=== PATIENT | female | born 1935 | race Caucasian/White ===

== ENCOUNTER 2017-05-06 12:40 | Inpatient (IN) | payer MEDICARE ==
[~2017-05-06] VITALS: Ht 154.9 cm; Wt 88.9 kg
[2017-05-06] VITALS (13 sets, daily range): BP systolic 90–161; BP diastolic 36–71
--- NOTE | ~2017-05-06 | CON ---
[place], [place] REPORT OF CONSULTATION NAME: JOSETTE RYDER UNIT #: [id number] ROOM: [place] [address] DOCTOR: GAURANG MEEK MD BIRTHDATE: [birth year] DOS: 05/07/2017 HISTORY OF PRESENT ILLNESS: An 81-year-old patient who has presented with chief complaint of shivering, rigor and not feeling well. She comes to the Emergency Room. Urine culture one of the studies done, cultures were negative. Urinalysis was benign. Lactic acid 2.7. Comprehensive metabolic panel, creatinine 1.0. Electrolytes balance, liver function tests normal. Lactic acid was reassessed, which is 1.5. CBC differential, H and H 10 and 32, platelets 187. Urine culture unremarkable. PAST MEDICAL HISTORY: Status post known history of diabetes mellitus, periodic electrolyte imbalance, periodic rectal bleed, history of asthma. PAST SURGICAL HISTORY: Cholecystectomy, colostomy, hysterectomy, lithotripsy. SOCIAL HISTORY: Nonsmoker, nonalcohol consumer. FAMILY HISTORY: Noncontributory. ALLERGIES: COLCHICINE. MEDICATIONS: List has been reviewed. REVIEW OF SYSTEMS: HEENT: Denies double vision, blurred vision. RESPIRATORY: Denies shortness of breath. CARDIOVASCULAR: Denies chest pain. DIGESTIVE SYSTEM: Rectal bleed periodically and colostomy. Patient has been on aspirin and clopidogrel. History of DVT, PE, inferior vena cava filter. PHYSICAL EXAMINATION: GENERAL: Stable, nondistressed. HEENT: Head normocephalic, nontraumatic. Mouth and buccal mucosa benign. NECK: Supple, no thyromegaly. CHEST: Symmetric anatomy, equal expansion. HEART: Normal sinus rhythm, no gallop, no murmur. LUNGS: Vesicular no wheeze, no rhonchi. ABDOMEN: Soft. No hepato-organomegaly, colostomy functional. There is no blood in colostomy. PELVIC: Rectum, does not appear to be blood tinged; at the present time, she tells me once in a while, she has blood per rectum. NEUROLOGIC: Alert, oriented to time, place and person. EXTREMITIES: No cyanosis. No pedal edema. IMPRESSION: Periodic rectal bleed with presence of diverting colostomy. Patient on aspirin and clopidogrel, possibility of mucosal irritation; therefore, we are going to Anucort-HC suppositories at bedtime to remedy the superficial problem on hand. OTHER ADJUNCTIVE DIAGNOSES: As outlined in the paragraph of past medical and [place], [place] REPORT OF CONSULTATION NAME: JOSETTE RYDER UNIT #: [id number] ROOM: [place] [address] DOCTOR: GAVIOTA HARRELL,GAURANG BIRTHDATE: [birth year] surgical history as reviewed, records reviewed, data reviewed. GAURANG MEEK MD CM:CONSTR:REPORT OF CONSULTATION 36 05/07/172110 interface
--- NOTE | ~2017-05-06 | PR ---
[place], [place] PROGRESS NOTE NAME: JOSETTE RYDER UNIT #: [id number] ROOM: 427 DOCTOR: CECILIA REID MD BIRTHDATE: [birth year] DOS: SUBJECTIVE: The patient is feeling good, but at times seems forgetful. OBJECTIVE: VITAL SIGNS: Blood pressure is 106/65, pulse of 85, respirations 22, temperature 98.3. LUNGS: Diminished breath sounds, clear. HEART: Regular. ABDOMEN: Obese with colostomy bag present. EXTREMITIES: Without any edema. ASSESSMENT AND PLAN: 1. The patient admitted with sepsis, most likely from underlying UTI. She was hypotensive, tachycardic with elevated lactic acid. She is definitely improved on ceftriaxone. Urine cultures and blood cultures are pending, no results available. 2. Adult failure to thrive. The patient would benefit from short-term placement to rehab center. Social service consult has been obtained. PT has already been seeing her. CECILIA REID MD CM:PNTRANS [id number] CECILIA REID MD 05/07/17 9865 interface
--- NOTE | ~2017-05-06 | WRIGHTHP ---
[place], [place] PATIENT HISTORY AND PHYSICAL EXAM NAME: JOSETTE RYDER [facility] #: [id number] UNIT #: [id number] ROOM: [place] [address] DOCTOR: DIEGO LEGER MD BIRTHDATE: [birth year] DOS: 05/06/2017 HISTORY OF PRESENT ILLNESS: An 81-year-old female presented to the Emergency Department at [facility] with complaints of shaking chills. The patient was found to be tachycardic with a heart rate of 126 beats per minute and fever of 104.2 degrees Fahrenheit, breathing 34 times per minute and elevated lactic acid levels. The patient was diagnosed as having sepsis related to urinary infection and recommended for admission and further management. The patient's chest x-ray showed no infiltrates. The patient is awake, alert and is starting to feel better with initial treatment. During the process of treatment in the Emergency Department and transfer to the floor for admission, the patient's blood pressure did drop and she became hypotensive with a systolic blood pressure of 90 and diastolic blood pressure of 36. No dizziness or fainting episode. No other GI or urinary symptoms. REVIEW OF SYSTEMS: LUNGS: No increasing shortness of breath. GASTROINTESTINAL: No nausea, vomiting, diarrhea, constipation. CARDIOVASCULAR: No chest pains or palpitations. FAMILY HISTORY: Noncontributory. SOCIAL HISTORY: Denies smoking cigarettes, alcohol and drug abuse. MEDICATIONS: The patient takes vitamin D, Plavix, glipizide, hydrochlorothiazide, losartan, metoprolol, omeprazole, ropinirole and simvastatin at home. ALLERGIES: Known allergies to COLCHICINE. FAMILY HISTORY: Noncontributory. PHYSICAL EXAMINATION: GENERAL: Awake, alert, oriented, weak, obese, in no visible distress. Generalized weakness. HEENT AND NECK: Extraocular movements are intact. Sclerae are anicteric. Oral mucosa is moist and clean. No obvious facial weakness. Neck is supple without any lymphadenopathy. No thyromegaly. No JVD. No carotid arterial bruits. LUNGS: Clear to auscultation. No wheezing. No rhonchi. CARDIOVASCULAR SYSTEM: Heart rate is regular in rate and rhythm. S1 and S2 normally audible. No significant murmur or any other abnormal cardiac sounds. ABDOMEN: Soft, nontender. No obvious organomegaly. Bowel sounds are present. No obvious herniation. The patient has colostomy with a colostomy bag. EXTREMITIES: Without significant cyanosis or edema. Warm to touch. CENTRAL NERVOUS SYSTEM: Alert and oriented x 3. Cranial nerves II-XII are intact. Speech is normal. The patient is able to move all extremities. Normal muscle strength. Deep tendon reflexes are equal on both sides. Plantars were downgoing. LABORATORY DATA: Chest x-ray without acute abnormality. Lactic acid level was [place], [place] PATIENT HISTORY AND PHYSICAL EXAM NAME: JOSETTE RYDER UNIT #: [id number] ROOM: [place] [address] DOCTOR: DIEGO LEGER MD BIRTHDATE: [birth year] 2.7, improved to 1.5. BUN and creatinine, serum electrolytes, bilirubin, liver enzymes normal. CBC is normal. IMPRESSION: 1. The patient presenting with sepsis, tachycardia of 130 beats per minute, fever of more than 104 degrees Fahrenheit, lactic acid level of 2.7 and respiratory rate of more than 30, has been admitted to the ICU and being treated for sepsis and suspected urinary infection. I will keep her on Rocephin and follow her closely. The patient was having shaking chills and blood cultures were sent. 2. Type 2 diabetes mellitus. Monitor blood sugars and treat accordingly. 3. Adult failure to thrive. The patient worked with physical therapy. 4. Benign essential hypertension. Monitor blood pressures and treat accordingly. 5. History of deep vein thrombosis, pulmonary embolism, IVC filter placement. 6. History of diverticulitis, colonic stricture with colectomy and colostomy. 7. Moderate obesity. The patient to work dietary. DIEGO LEGER MD CM:HISPHYS:PATIENT HISTORY AND PHYSICAL EXAMINATION 40 58 DIEGO LEGER MD 05/06/172057 interface
--- NOTE | ~2017-05-06 | WRIGHTHP ---
[place], [place] PATIENT HISTORY AND PHYSICAL EXAM NAME: JOSETTE RYDER [facility] #: [id number] UNIT #: [id number] ROOM: 427 DOCTOR: DIEGO LEGER MD BIRTHDATE: [birth year] DOS: 05/10/2017 DIAGNOSES: 1. The patient noticed blood per rectum, apparently related to hemorrhoids. Dr. Arellano performed endoscopy and evaluated the patient. 2. The patient had sepsis, fever, tachycardia apparently from urinary infection with E. coli, urinary tract infection and cystitis, treated with IV antibiotics. 3. Adult failure to thrive and generalized weakness. 4. Moderate obesity. 5. Benign essential hypertension. 6. Type 2 diabetes mellitus. Blood sugars are reasonably controlled. The patient presented to the Emergency Department at [facility] with shaking chills, tachycardia, heart rate of 226 beats per minute with sinus tachycardia, breathing 34 times per minute and fever of 104.2. The patient also had elevated lactic acid level and she was diagnosed as having sepsis. The patient grew Enterococcus faecalis from her urine and she was treated with antibiotics appropriately and is being discharged to home on Augmentin. The patient is symptomatic, now afebrile, no tachycardia and asymptomatic, no fever. The patient is to follow up with her PCP, Dr. Contreras, on Sunday next week. Generalized weakness and dural failure to thrive. The patient worked with physical therapy and she refused senior living placement for rehabilitation. Blood per rectum, it was thought to be secondary to hemorrhoids. Dr. Arellano performed endoscopy. Moderate obesity. The patient worked with dietary. Type 2 diabetes mellitus. Blood sugars have been reasonably controlled. Benign essential hypertension with controlled blood pressures with treatment. LABORATORY DATA: Endoscopy results as mentioned above. Urine cultures grew Enterococcus faecalis sensitive to penicillin, hemoglobin of 10.5, no leukocytosis. DISCHARGE MANAGEMENT: Gabapentin 100 mg in the morning and 200 mg at bedtime, losartan 50 mg daily, hydrochlorothiazide 12.5 mg daily, Plavix 75 mg a day, glipizide 5 mg b.i.d., omeprazole 20 mg daily, simvastatin 20 mg at bedtime, Tylenol p.r.n., ropinirole 4 mg at bedtime, metoprolol 50 mg b.i.d., Nystatin 5 mL swish and swallow b.i.d. for 10 days, Augmentin 875 mg twice a day for a week. Follow up with Dr. Contreras, PCP, next week on Sunday, that is in 5 days. [place], [place] PATIENT HISTORY AND PHYSICAL EXAM NAME: JOSETTE RYDER UNIT #: [id number] ROOM: [facility] DOCTOR: DIEGO LEGER MD BIRTHDATE: [birth year] DIEGO LEGER MD CM:HISPHYS:PATIENT HISTORY AND PHYSICAL EXAMINATION [phone] DIEGO LEGER MD 05/10/17 2253 interface
--- NOTE | ~2017-05-06 | PR ---
[place], [place] PROGRESS NOTE NAME: JOSETTE RYDER [facility] #: [id number] UNIT #: [id number] ROOM: 427 DOCTOR: DIEGO LEGER MD BIRTHDATE: [birth year] DOS: 05/09/2017 SUBJECTIVE: The patient continues to feel better. She is going for an endoscopy to be performed through her colostomy for blood that was seen in her colostomy bag today. OBJECTIVE: GENERAL APPEARANCE: The patient is alert and oriented x 3, in no visible distress, generalized weakness. VITAL SIGNS: Blood pressure ____, heart rate ____ beats per minute, breathing 18 times per minute, temperature 98 degrees Fahrenheit. HEENT AND NECK: Exam within normal limits. CARDIOVASCULAR SYSTEM: Heart rate is regular in rate and rhythm. S1 and S2 normally audible. LUNGS: Clear to auscultation. ABDOMEN: Soft, nontender. No obvious organomegaly. Bowel sounds are present. EXTREMITIES: Without significant cyanosis or edema. IMPRESSION: 1. The patient with sepsis, fever, tachycardia, urine infection with Escherichia coli and hypotension along with lactic acidosis has all resolved with treatment with ceftriaxone. The patient continues to improve. Her Patel catheter needs to be removed. 2. Adult failure to thrive with generalized weakness and recurrent falls. The patient working with Physical Therapy. 3. Blood found in colostomy bag with acute lower gastrointestinal bleed. The patient undergoing endoscopy to be performed through her colostomy site by Dr. Arellano today for further evaluation. 4. Moderate obesity. The patient working with her Dietary. 5. Benign essential hypertension with controlled blood pressures. 6. Type 2 diabetes mellitus with reasonably controlled blood sugars. DIEGO LEGER MD CM:PNTRANS [id number] DIEGO LEGER MD 05/09/17 1348 interface
--- NOTE | ~2017-05-06 | PR ---
[place], [place] PROGRESS NOTE NAME: [id number] UNIT #: [id number] ROOM: 427 DOCTOR: ARSEN HARRELL,DIEGO Gutierrez BIRTHDATE: [birth year] DOS: 05/08/2017 ADDENDUM IMPRESSION: 1. The patient with sepsis, suspected urinary infection and hypotension, tachycardia, elevated lactic acid levels, being treated with ceftriaxone. 2. Adult failure to thrive, generalized weakness and recurrent falls, but the patient does not want to go to half-way facility or rehab. The patient says she wants to be discharged to home from the hospital and she is alert and oriented and capable of making decisions at this time. 3. Fever of 104 degrees Fahrenheit, resolved, apparently from urinary infection. 4. Benign essential hypertension with blood pressure being monitored and controlled. 5. Sinus tachycardia, the heart rate of 130 beats per minute, resolved with treatment, apparently related to fever. 6. Moderate obesity. The patient is working with dietary. 7. History of deep venous thrombosis, pulmonary embolism and inferior vena cava filter placement. 8. Benign essential hypertension. Blood pressure is being monitored and treated. 9. Type 2 diabetes mellitus with reasonably controlled blood sugars. 10. Adult failure to thrive. The patient is working with physical therapy and she does not want to go to half-way for rehabilitation. DIEGO LEGER MD CM:PNTRANS [id number] DIEGO LEGER MD 05/09/17 0809 interface
--- NOTE | ~2017-05-06 | O ---
[place], [place] OPERATIVE NOTE NAME: JOSETTE RYDER UNIT #: [id number] ROOM: 427 DOCTOR: GAVIOTA HARRELL,GAURANG BIRTHDATE: [birth year] DOS: GASTRO-ENDOSCOPIC REPORT INDICATIONS: The patient has presented with persistent lower rectal bleed. The patient with diverticulectomy in place and concern about recurrent rectal bleed and recurrent admission about above. PROCEDURE: Today's procedure part of investigation is flexible sigmoidoscopy. PREMEDICATION: Versed. SCOPE: Olympus forward-viewing colonoscope 10L video. REPORT: After putting the patient in the left lateral position and after application of lubricant to rectal pouch and digital examination, scope was introduced. Thereafter, under direct visualization, I advanced left of the rectosigmoid colon without difficulty. Scope was negotiated to anastomotic site. Diverticulosis noticed. A small hemorrhoid was appreciated. No active bleeding source was identified. The patient extubated, tolerated procedure well. IMPRESSION: Diverticulosis, benign anastomotic site, hemorrhoid. PLAN AND DISCUSSION: Hemorrhoids ____ patient would suffice management. She is advised not to be concerned about the superficial bleeds and we are going to start her on regular diet. GAURANG MEEK MD CM:OPRECORD:OPERATIVE NOTE [phone] GAURANG MEEK MD 05/09/17 1712 interface
[~2017-05-06 12:40] MED LIST: ALPRAZOLAM0.5 M3 PO; AMARYL2 MG PO; ASPI-COR81 M1 PO; ASPIR LOW81 MG PO; ATOXIMETIN-B1 CAP PO; AUGMENTIN 875-875 MG PO; BACTRIM DS 8001 TA1 PO; CEFTIN250 MG PO; COZAAR50 MG PO; DELTASONE5 MG PO; DUONEB 3 MG/3 ML3 M1 NEB; GLIPIZIDE5 MG PO; GLUCTESTSTRIP; HYDR12.5C PO; INDOMETHACIN50 MG PO; LEXAPRO10 MG PO; LOPRESSOR50 M1 PO; LOPRESSOR50 MG PO; MOTRIN400 MG PO; MULTI-DAY1 TAB PO; NEBULIZER; NEURONTIN100 MG PO; NILSTAT,MY500000 UN/ PO; PERCOCET 325 MG1 TA7 PO; PLAVIX75 MG PO; PRILOSEC20 MG PO; PRINIVIL20 MG PO; PROTONIX20 MG PO; PULMICORT RESP0.5 MG INH; QUINAPRIL10 MG PO; ROPINIROLE HYDRO2 M1 PO; VITAMIN C500 MG PO; VITAMIN D32000 I1 PO; ZOCOR20 MG PO; [UNRECOGNIZED DRUG - OTHER] PO
[2017-05-06 13:41] LABS: HEMATOCRIT 37.5 % (37.0-47.0); HEMOGLOBIN 12.1 g/dl (12.0-16.0); MEAN CELL VOLUME 86.4 fl (81.0-99.0); MEAN CORPUSCULAR HGB 27.9 pg (27.0-31.0); MEAN CORPUSCULAR HGB CONC 32.3 g/dl (33.0-37.0); MEAN PLATELET VOLUME 10.8 fl (9.6-12.3); PLATELET COUNT AUTOMATED 195 10*3/uL (130-400); RED BLOOD COUNT 4.34 10*6/uL (4.10-5.10); RED CELL DISTRI WIDTH 13.6 % (0-14.5); WHITE BLOOD COUNT 8.2 10*3/uL (4.8-10.8)
[2017-05-06 13:48] LABS: BILIRUBIN NEGATIVE (NEGATIVE); BLOOD TRACE-LYSED (NEGATIVE); CLARITY CLEAR (CLEAR); COLOR STRAW (YELLOW); GLUCOSE NEGATIVE (NEGATIVE); KETONE NEGATIVE (NEGATIVE); LEUKO ESTERASE TRACE (NEGATIVE); NITRITE NEGATIVE (NEGATIVE); PH 5.5 (5.0-9.0); SPECIFIC GRAVITY 1.015 (1.005-1.030); UROBILINOGEN 0.2 E.U./dl (0.2-1.0)
--- NOTE | 2017-05-06 13:53 | NUR ---
LAB CALLED CRITICAL LACTIC ACID OF 2.[address] COATES AWARE
[2017-05-06 13:56] LABS: ALBUMIN 3.2 gm/dl (3.1-4.5); ALKALINE PHOSPHATASE 107 U/L (45-117); BUN 19 mg/dl (7-24); CHLORIDE 100 mmol/L (98-107); CREATININE 1.03 mg/dL (0.55-1.02); POTASSIUM 4.2 mmol/L (3.5-5.1); SGOT/AST 14 IU/L (3-35); SGPT/ALT 15 U/L (12-78); SODIUM 136 mmol/L (136-145); TOTAL PROTEIN 7.7 gm/dL (6.4-8.2)
[2017-05-06 14:01] LABS: BACTERIA 1+
[2017-05-06 14:03] LABS: BASOPHILS 1 % (0-1); TOTAL CELLS COUNTED 100 #CELLS
[2017-05-06 14:04] LABS: PLATELET SUFFICIENCY NORMAL (NORMAL); POLYCHROMASIA SLIGHT; TOXIC GRANULATION SLIGHT
--- NOTE | 2017-05-06 15:40 | NUR ---
ATTEMPTED TO CALL REPORT. THEY ARE UNABLE TO TAKE AT THIS TIME. THEY WILL CALL BACK. MARCO ANTONIO RODRIGUEZ RN
--- NOTE | 2017-05-06 15:53 | NUR ---
PLACED ON 2L NC. SATS 89-90% ON ROOM AIR WHILE SLEEPING. MARCO ANTONIO RODRIGUEZ RN
--- NOTE | 2017-05-06 16:45 | NUR ---
A 81, admitted to ICCU, under the services of Dr. ARSEN HARRELL,DIEGO Gutierrez with a diagnosis of UTI/SEPSIS. Chief complaint is rectal bleeding/nausea Patient arrived via stretcher from ER. Monitor applied. Initial assessment completed. Vital signs taken and recorded. DR. ARSEN HARRELL,DIEGO Gutierrez notified of admission to the unit. Orders received. See assessment for past medical history, medications and allergies. Patient and/or family oriented to unit. [facility] ICCU visitation policy reviewed. Clothing/patient valuable form completed. NOHELIA CARDOZO
--- NOTE | 2017-05-06 18:57 | NUR ---
DR. MEEK NOTIFIED OF CONSULT.
--- NOTE | 2017-05-06 19:14 | NUR ---
Shift chart check completed.24 HR chart check completed.
--- NOTE | 2017-05-06 20:18 | NUR ---
ON ASSESSMENT PATIENT IS SHIVERING. TEMP 98.6 AT PRESENT. WARM BLANKET APPLIED. NO VOICED COMPLAINTS OF PAIN.SHE'S ALERT AND ORIENTED AT PRESENT. SEE ALL APPROPRIATE INTERVENTIONS.
[2017-05-07] VITALS: BP 120/64
--- NOTE | 2017-05-07 00:44 | NUR ---
TYLENOL BY MOUTH FOR TEMP ELEVATION.
--- NOTE | 2017-05-07 02:32 | NUR ---
DAMION HOSE REMOVED AT PT REQUEST. NO DYSRHYTHMIAS OR RESPIRATORY DISTRESS.
[2017-05-07 04:00] VITALS: BP 101/50
[2017-05-07 05:07] LABS: HEMATOCRIT 32.7 % (37.0-47.0); HEMOGLOBIN 10.5 g/dl (12.0-16.0); MEAN CELL VOLUME 87.4 fl (81.0-99.0); MEAN CORPUSCULAR HGB 28.1 pg (27.0-31.0); MEAN CORPUSCULAR HGB CONC 32.1 g/dl (33.0-37.0); MEAN PLATELET VOLUME 10.3 fl (9.6-12.3); PLATELET COUNT AUTOMATED 184 10*3/uL (130-400); RED BLOOD COUNT 3.74 10*6/uL (4.10-5.10); RED CELL DISTRI WIDTH 14.1 % (0-14.5); WHITE BLOOD COUNT 10.1 10*3/uL (4.8-10.8)
[2017-05-07 05:34] LABS: BUN 18 mg/dl (7-24); CHLORIDE 104 mmol/L (98-107); CREATININE 0.93 mg/dL (0.55-1.02); POTASSIUM 3.9 mmol/L (3.5-5.1); SODIUM 138 mmol/L (136-145)
[2017-05-07 05:36] LABS: PLATELET SUFFICIENCY NORMAL (NORMAL); TOTAL CELLS COUNTED 100 #CELLS
--- NOTE | 2017-05-07 07:00 | NUR ---
24 HR chart check completed.
[2017-05-07 08:00] VITALS: BP 106/55
--- NOTE | 2017-05-07 08:15 | NUR ---
DR REID INTO ASSESS PT. MADE IMC. ORDERS RECIEVED AND CARRIED OUT.
[2017-05-07 12:00] VITALS: BP 98/56
--- NOTE | 2017-05-07 12:23 | NUR ---
Received order for skilled rehab snf stay. In to talk with patient, sister at her bedside. Explained to patient, order was put in for skilled, she stated she doesn't want that, she is not home bound, she still gets around fine at home, lives with her sister. Refusing snf at this time.
[2017-05-07 16:18] VITALS: BP 109/54
[2017-05-07 20:00] VITALS: BP 138/67
--- NOTE | 2017-05-07 20:00 | NUR ---
Patient resting quietly with no c/o discomfort. Respirations easy and regular. Vital signs stable. No overt distress. GIVEN PHONE TO CALL FRIENDS/FAMILY. ALFRED MANZO
[2017-05-07] MEDS ORDERED: NEURONTIN100 MG PO ×2 (21:43)
--- NOTE | 2017-05-07 23:00 | NUR ---
OSTOMY WAFER/BAG REPLACED.
--- NOTE | 2017-05-07 23:54 | NUR ---
PATIENT MEDICATED WITH PRN TYLENOL FOR HEADACHE RATED 5/10 ON A 0/10 PAIN SCALE
[2017-05-08] VITALS: BP 130/60
--- NOTE | 2017-05-08 01:20 | NUR ---
24 HR chart check completed.
--- NOTE | 2017-05-08 03:27 | NUR ---
PATIENT RESTING WITH EYES CLOSED. RESPS EASY AND REGULAR. BED IN LOWEST POSITION, CALL LIGHT IN REACH
--- NOTE | 2017-05-08 06:09 | NUR ---
PATIENT WANTS GLUCATROL AT 9AM INSTEAD OF NOW
[2017-05-08 08:00] VITALS: BP 126/70
--- NOTE | 2017-05-08 10:14 | NUR ---
PHYSICAL THERAPY Patient bathing at this time. Thank you for this referral. Jessica Bell,PT
--- NOTE | 2017-05-08 11:31 | NUR ---
PHYSICAL THERAPY PAtient evaluated on 4, full evaluation to follow. Continue with PT as per plan of care with fall precautions. Home with family assist and home health complete services. PAtient is low complexity via chart review, tests anf evaluation:[id number]. Thank you for this referral. Jessica Bell, PT
[2017-05-08 12:00] VITALS: BP 125/62
--- NOTE | 2017-05-08 12:41 | NUR ---
PHYSICAL THERAPY Anne-Marie was seen this PM 1:1 for her therapy and did very well, Pt with fall precautions. Transfer sit/stand and standing balance MIN A X 1. Start gait without wheeled walker, Anne-Marie wanted to try that first. Gait with MIN LOSS PREVENTION MANAGER X 1, 30' x 1, and just not safe at this time without a walker having LOB. Followed by gait with wheeled walker total 165' X 1, CG X 1, no LOB and cueing just to slow down for gait safety. Pt back up in her bedside chair followed by act Ex to bilateral LE of marching, LAQ's, and ankle pumps X 20 reps each with cueing for each Ex. Pt with call light and sister present, treatment time 25 min. REBEKA ROBLES FAN BLADE TRUER.
[2017-05-08 16:00] VITALS: BP 115/51
[2017-05-08 20:00] VITALS: BP 158/70
[2017-05-09] VITALS (9 sets, daily range): BP systolic 92–150; BP diastolic 41–74
--- NOTE | 2017-05-09 | NUR ---
Patient resting quietly with no c/o discomfort. Respirations easy and regular. Vital signs stable. No overt distress. ALFRED MANZO
--- NOTE | 2017-05-09 04:00 | NUR ---
Patient resting quietly with no c/o discomfort. Respirations easy and regular. Vital signs stable. No overt distress. ALFRED MANZO
--- NOTE | 2017-05-09 11:52 | NUR ---
PHYSICAL THERAPY Anne-Marie seen this AM 1:1 for her therapy session. Said not now that she was going down for test this morning. Stopped back and Pt getting her bath. REBEKA ROBLSE CATALYST SUPERVISOR.
--- NOTE | 2017-05-09 12:56 | NUR ---
PHYSICAL THERAPY Anne-Marie seen this PM and talked into her therapy session before her colonoscopy. Transfer supine/sit CG X 1, sitting balance supervision x 1. Sit/stand and standing balance with wheeled walker MIN A X 1. Gait total 125' X 1, W/W and CGA X 1, no LOB and back supine in bed to rest before her test, treatment time 15 min. REBEKA ROBLES CALL CENTER AGENT.
--- NOTE | 2017-05-09 15:08 | NUR ---
Pt was taken off floor to OR.
[2017-05-10] VITALS: BP 128/59
--- NOTE | 2017-05-10 03:16 | NUR ---
PATIENT SLEEPING AT THIS TIME. NO DISTRESS NOTED, NO CONCERNS AT THIS TIME.
[2017-05-10 08:00] VITALS: BP 131/62
[2017-05-10 12:00] VITALS: BP 122/56
--- NOTE | 2017-05-10 13:53 | NUR ---
PHYSICAL THERAPY Patient presented to therapy with report of feeling much better today. Patient performed sit to stand transfer with SBA. Patient ambulated 220' x 1 with W/W and Supervision. Patient was 1:1 with this TECHNOLOGY PROJECT MANAGER for 12 minutes of gait and 15 minutes of familia. LE ther ex. Jay Alvarado TECHNOLOGY PROJECT MANAGER
[2017-05-10 16:00] VITALS: BP 125/61
[2017-05-10] MEDS ORDERED: Nystatin 100,000 UNI PO (16:19)
--- NOTE | 2017-05-10 17:21 | NUR ---
Discharge instructions reviewed with patient/family. Patient receptive and verbalizes understanding. Follow-up care arranged. Written instructions given to patient/family. BERONICA PORTER
--- NOTE | 2017-05-11 08:01 | NUR ---
PHYSICAL THERAPY CO-SIGN I approve of the Phyical Therapy notes written above. VINICIO CHAPA PT
== END 2017-05-10 17:21 | disposition home or self-care (01) | DRG 872 ==
LOC: ED 12:40 → EDHOLD 15:01 → ICCU 15:01 → 4E 15:01 → ICCU 15:05 → 4E 05-07 22:57
PROVIDERS: Emergency Medicine; ADMIT Internal Medicine
PROC: 0DJD8ZZ Inspection of Lower Intestinal Tract, Via Natural or Artificial Opening Endoscopic (ICD-10-PCS; principal; 2017-05-09)
DX: A41.9 Sepsis, unspecified organism (principal); E87.2 Acidosis; K92.2 Gastrointestinal hemorrhage, unspecified; E11.65 Type 2 diabetes mellitus with hyperglycemia; N39.0 Urinary tract infection, site not specified; R65.20 Severe sepsis without septic shock; Z93.3 Colostomy status; R62.7 Adult failure to thrive; I10 Essential (primary) hypertension; E66.09 Other obesity due to excess calories; K64.9 Unspecified hemorrhoids; J45.909 Unspecified asthma, uncomplicated; D64.9 Anemia, unspecified; B96.20 Unspecified Escherichia coli [E. coli] as the cause of diseases classified elsewhere; Z79.899 Other long term (current) drug therapy; Z88.8 Allergy status to other drugs, medicaments and biological substances; Z90.710 Acquired absence of both cervix and uterus; Z90.49 Acquired absence of other specified parts of digestive tract; Z86.718 Personal history of other venous thrombosis and embolism; Z86.711 Personal history of pulmonary embolism; Z87.19 Personal history of other diseases of the digestive system; Z68.35 Body mass index [BMI] 35.0-35.9, adult

== ENCOUNTER → 2018-01-10 | Outpatient (CLI) | payer MEDICARE ==
[~2018-01-10] MED LIST changes: +Nystatin 100,000 UNI PO
== END | disposition home or self-care (01) ==
LOC: RAD 14:07
DX: M19.032 Primary osteoarthritis, left wrist (principal); Z91.81 History of falling

== ENCOUNTER → 2018-01-24 | Outpatient (CLI) | payer MEDICARE | END | disposition home or self-care (01) | LOC: MAMMO 13:27 | DX: Z12.31 Encounter for screening mammogram for malignant neoplasm of breast (principal) ==

== ENCOUNTER 2018-05-04 12:51 | Emergency (ER) | payer MEDICARE ==
[~2018-05-04] VITALS: Ht 157.4 cm; Wt 89.8 kg
[2018-05-04 12:51] VITALS: BP 161/75
[~2018-05-04 12:51] MED LIST changes: +GABAPENTIN400 MG PO; +XARE15TA PO
== END 2018-05-04 15:40 | disposition home or self-care (01) ==
LOC: ED 12:51
DX: S60.221A Contusion of right hand, initial encounter (principal); S09.90XA Unspecified injury of head, initial encounter; Z86.718 Personal history of other venous thrombosis and embolism; Z79.899 Other long term (current) drug therapy; Z88.8 Allergy status to other drugs, medicaments and biological substances; W10.9XXA Fall (on) (from) unspecified stairs and steps, initial encounter; Y93.89 Activity, other specified; Y92.89 Other specified places as the place of occurrence of the external cause; Y99.8 Other external cause status

== ENCOUNTER → 2018-06-22 | Outpatient (CLI) | payer MEDICARE ==
[~2018-06-22] MED LIST changes: +AUGMENTIN 875875 MG PO; +CYCLOBENZAPRINE5 M3 PO; +DICLOFENAC SOD100 G1 T; +Ipratropium Brom3 ML NEB; +PREDNISONE5 MG PO; +TRAMADOL HCL50 MG PO; +VITAMIN D50000 UNIT PO; +XARE20MG PO; +ZANAFLEX2 M1 PO
== END | disposition home or self-care (01) ==
LOC: US 10:54
DX: I82.492 Acute embolism and thrombosis of other specified deep vein of left lower extremity (principal)

== ENCOUNTER 2018-07-06 14:24 | Emergency (ER) | payer MEDICARE ==
[~2018-07-06] VITALS: Ht 157.4 cm; Wt 89.4 kg
[~2018-07-06 14:24] MED LIST changes: -AUGMENTIN 875875 MG PO; -CYCLOBENZAPRINE5 M3 PO; -DICLOFENAC SOD100 G1 T; -Ipratropium Brom3 ML NEB; -PREDNISONE5 MG PO; -TRAMADOL HCL50 MG PO; -VITAMIN D50000 UNIT PO; -XARE20MG PO; -ZANAFLEX2 M1 PO
[2018-07-06 14:25] VITALS: BP 163/91
[2018-07-06 14:43] LABS: BASO % 0.5 % (0.0-1.0); EOS # 0.3 10*3/uL (0.0-0.4); EOS % 4.4 % (1.0-4.0); HEMATOCRIT 34.7 % (37.0-47.0); HEMOGLOBIN 10.8 g/dl (12.0-16.0); LYMPH # 2.1 10*3/uL (1.3-4.4); LYMPH % 26.3 % (27.0-41.0); MEAN CORPUSCULAR HGB 26.2 pg (27.0-31.0); MEAN CORPUSCULAR HGB CONC 31.1 g/dl (33.0-37.0); MEAN PLATELET VOLUME 10.2 fl (9.6-12.3); MONO # 0.5 10*3/uL (0.1-1.0); MONO % 6.3 % (3.0-9.0); NEUT # 4.8 10*3/uL (2.3-7.9); NEUT % 62.1 % (47.0-73.0); PLATELET COUNT AUTOMATED 264 10*3/uL (130-400); RED BLOOD COUNT 4.13 10*6/uL (4.10-5.10); RED CELL DISTRI WIDTH 14.1 % (0-14.5); WHITE BLOOD COUNT 7.8 10*3/uL (4.8-10.8)
[2018-07-06 15:00] LABS: ALBUMIN 3.4 gm/dl (3.1-4.5); ALKALINE PHOSPHATASE 71 U/L (45-117); BUN 15 mg/dl (7-24); CHLORIDE 104 mmol/L (98-107); CREATININE 0.88 mg/dL (0.55-1.02); LIPASE 149 U/L (73-393); POTASSIUM 4.6 mmol/L (3.5-5.1); SGOT/AST 16 IU/L (3-35); SGPT/ALT 16 U/L (12-78); SODIUM 137 mmol/L (136-145); TOTAL PROTEIN 7.6 gm/dL (6.4-8.2); TROPONIN I < 0.015 ng/ml (<0.045)
[2018-07-06 15:15] LABS: BILIRUBIN NEGATIVE (NEGATIVE); BLOOD NEGATIVE (NEGATIVE); CLARITY SL CLOUDY (CLEAR); COLOR YELLOW (YELLOW); GLUCOSE NEGATIVE (NEGATIVE); KETONE NEGATIVE (NEGATIVE); LEUKO ESTERASE 1+ (NEGATIVE); NITRITE NEGATIVE (NEGATIVE); PH 5.5 (5.0-9.0); SPECIFIC GRAVITY 1.025 (1.005-1.030); UROBILINOGEN 0.2 E.U./dl (0.2-1.0)
[2018-07-06 15:25] LABS: WBC TNTC wbc/hpf (0-5)
[2018-07-06] MEDS ORDERED: CYCLOBENZAPRINE5 M3 PO (16:33)
[2018-07-06] MEDS ORDERED: TRAMADOL HCL50 MG PO (16:34)
== END 2018-07-06 16:36 | disposition home or self-care (01) ==
LOC: ED 14:24
PROVIDERS: Nurse Practitioner Family
DX: M54.5 Low back pain (principal); M62.830 Muscle spasm of back; E11.9 Type 2 diabetes mellitus without complications; K21.9 Gastro-esophageal reflux disease without esophagitis; Z93.3 Colostomy status; Z79.899 Other long term (current) drug therapy; Z86.73 Personal history of transient ischemic attack (TIA), and cerebral infarction without residual deficits; Z90.710 Acquired absence of both cervix and uterus; Z90.49 Acquired absence of other specified parts of digestive tract

== ENCOUNTER 2018-07-11 02:48 | Inpatient (IN) | payer MEDICARE ==
[2018-07-11] VITALS (8 sets, daily range): BP systolic 126–147; BP diastolic 59–77
[~2018-07-11] VITALS: Ht 157.4 cm; Wt 88.1 kg
--- NOTE | ~2018-07-11 | CON ---
[place], [place] REPORT OF CONSULTATION NAME: [facility]TE [facility]YDER [facility]: [id number] UNIT #: [id number] ROOM: 412 DOCTOR: KAMILAH HICKEY MD BIRTHDATE: [birth year] DOS: 07/15/2018 CARDIOLOGY CONSULTATION REASON FOR CONSULTATION: Hypotension. HISTORY OF PRESENT ILLNESS: The patient is an 83-year-old woman who has no documented heart disease. She was evaluated at the [facility] in [place] about 5 years ago per her report. I do not have those records, but she states that she did undergo catheterization. After the catheterization, she suffered a right hemispheric stroke, had an episode of gout and then developed multisystem failure. She was transferred to the [facility] where she was hospitalized for a week and then improved. She states that her heart catheterization showed no significant coronary artery disease. She has never had a heart attack and denies any chest pain. She came into the hospital on this occasion after falling at home. Pain started about 4 days prior to admission and was found to be due to a compression fracture of L2. This was treated by invasive radiologist, Dr. Etienne with vertebroplasty on 07/12/2018. Her symptoms improved and she was being scheduled for transfer to the [facility] for rehabilitation. Last evening, her blood pressure dropped substantially from 134/72-88/44. She was given a total of 1000 mL of saline solution intravenously and her blood pressure this morning is normal. Current blood pressure is 116/52. She denied any chest pain, lightheadedness, syncope or dyspnea. Her EKG showed no acute changes, serial troponins were normal. Her hemoglobin had dropped from 10.0 to 9.0, but at this morning, it is stable at 9.2. She did recently have an echocardiogram on 03/15/2018, which showed a mildly dilated left ventricle with normal segmental wall motion, mild concentric left ventricular hypertrophy and an ejection fraction of 65% with grade 1 abnormal relaxation pattern present. There was aortic sclerosis, but no stenosis. There was no significant abnormality of mitral valve function. PAST MEDICAL HISTORY: Includes: 1. Essential hypertension. 2. Type 2 diabetes mellitus. 3. Deep venous thrombosis treated with Xarelto. 4. Restless leg syndrome. 5. History of colectomy and colostomy in the past. 6. History of diverticulosis. 7. History of gout. CURRENT MEDICATIONS: Include Dilaudid 0.25 mg q. 8 hours IV, gabapentin 300 mg q. 8 hours, Augmentin 875 mg q. 12 hours p.o., acetaminophen p.r.n., rivaroxaban 20 mg daily, metoprolol 50 mg b.i.d., Lidoderm patch p.r.n., Lexapro 10 mg daily, albuterol by nebulizer q. 6 hours, omeprazole 20 mg daily and glipizide 10 mg daily. She was also on hydrochlorothiazide and losartan, but these were placed on hold when her blood pressure dropped. ALLERGIES: The patient lists an allergy to colchicine. [place], [place] REPORT OF CONSULTATION NAME: JOSETTE RYDER UNIT #: [id number] ROOM: [facility] DOCTOR: KAMILAH HICKEY MD BIRTHDATE: [birth year] REVIEW OF SYSTEMS: The patient denies diplopia or loss of vision. She does have mild chronic left-sided weakness since her stroke 5 years ago. This has not changed lately. She denies nausea or vomiting. She denies fevers, chills, sweats or recent weight change. She denies hemoptysis or hematemesis. She denies bleeding from any site and specifically denies hematuria or hematochezia. She does have back pain from her recent injury. She denies PND. She denies any peripheral edema. She denies leg pain. She denies polyuria or polydipsia. The remainder of the review of systems is negative except as noted above. FAMILY HISTORY: Negative for early coronary artery disease. SOCIAL HISTORY: The patient is a nonsmoker and does not consume alcohol. PHYSICAL EXAMINATION: GENERAL: The patient is an elderly white female, awake, alert and oriented. VITAL SIGNS: Pulse is 87 and regular, blood pressure is 116/52. She is afebrile. She weighs 88.1 kg and has a body mass index of 35.6. HEENT: Normocephalic and atraumatic. Extraocular muscles are intact. Sclerae are clear. Pupils equal, round and react to light. Oral mucosa is moist. Tongue is midline. NECK: Supple. She has no jugular distention. Carotids are full. There are no bruits. She has no neck or supraclavicular masses. LUNGS: Respirations are unlabored. Her chest has decreased breath sounds at the bases with a few crackles at the left base. HEART: Her heart has a regular rhythm. She has a fourth heart sound, but no third heart sound or murmur. The PMI is not displaced. She has no precordial heave, lift or thrill. ABDOMEN: Soft and normally active without masses, organomegaly or bruits. EXTREMITIES: Showed no edema or palpable cords. There was no Homans sign. Pedal pulses were intact bilaterally. LABORATORY DATA: Her electrocardiogram showed sinus rhythm with PACs. There was low voltage in the precordial leads and borderline T-wave abnormalities, but no acute ST elevation or depression. Serial troponin levels were negative. Hemoglobin on admission was 10.0 and fell to 9.0 during her event, but was 9.2 this morning. Chest x-ray showed atelectasis at the left base, but no infiltrates, cardiomegaly or heart failure. IMPRESSION: 1. Hypotension, likely due to decreased oral intake, dehydration and pain medications. The patient improved rapidly with fluid resuscitation. 2. Recent fall with L2 compression fracture. The patient received a kyphoplasty this admission with some improvement in her symptoms. 3. Essential hypertension. 4. Type 2 diabetes mellitus. 5. History of cardiac catheterization about 5 years ago at the [facility]. Her post-procedure course was complicated by a right hemispheric stroke with left body weakness and reported multisystem organ failure that eventually resolved spontaneously with appropriate treatment. She still does [place], [place] REPORT OF CONSULTATION NAME: J[facility]TE RYDER [facility]: [id number] UNIT #: [id number] ROOM: [facility] DOCTOR: KAMILAH HICKEY MD BIRTHDATE: [birth year] have a slight left-sided weakness. PLAN: No other cardiac workup is planned at this time. The patient appears to be stable for discharge and may go to the [facility] for rehabilitation at Dr. Contreras' discretion. We thank Dr. Contreras and Dr. Bingham for asking our advice regarding the patient's care. KAMILAH HICKEY MD CM:CONSTR:REPORT OF CONSULTATION 0917 07/16/18 0351 interface
--- NOTE | ~2018-07-11 | PR ---
[place], [place] PROGRESS NOTE NAME: JOSETTE RYDER UNIT #: [id number] ROOM: 412 DOCTOR: DIEGO LEGER MD BIRTHDATE: [birth year] DOS: 07/14/2018 SUBJECTIVE: The patient complaining of acute pains in her foot, starting this morning, but her leg pains and back pains are much better. OBJECTIVE: VITAL SIGNS: Blood pressure 134/72, heart rate of 70 beats per minute, breathing 18 times per minute, temperature 98.2 degrees Fahrenheit. GENERAL APPEARANCE: The patient is alert and oriented x 3, in no visible distress. Has generalized weakness. HEENT AND NECK: Exam within normal limits. CARDIOVASCULAR SYSTEM: Heart rate is regular in rate and rhythm. S1 and S2 normally audible. LUNGS: Clear to auscultation. ABDOMEN: Soft, nontender. No obvious organomegaly. Bowel sounds are present. EXTREMITIES: Without significant cyanosis or edema. IMPRESSION: 1. The patient is status post L2 vertebroplasty with improvement in pain. This was done for acute compression fracture. 2. Acute gouty arthritis involving the base of the right great toe to be treated with Naprosyn, Toradol and followed closely. 3. Diabetic peripheral polyneuropathy with significant pains improved with changing the dose of Neurontin. 4. Urinary tract infection with Enterococcus faecalis, treated with Augmentin and Rocephin. 5. Chronic persistent moderate asthma treated with bronchodilators and incentive spirometry along with antibiotic. 6. Type 2 diabetes mellitus with well controlled blood sugars. 7. Benign essential hypertension. Blood pressure being monitored and staying normal. 8. History of deep vein thrombosis. The patient remains anticoagulated with Xarelto. 9. Mixed type hyperlipidemia, treated with simvastatin. [place], [place] PROGRESS NOTE NAME: JOSETTE RYDER UNIT #: [id number] ROOM: 412 DOCTOR: DIEGO LEGER MD BIRTHDATE: [birth year] DIEGO LEGER MD CM:PNTRANS 154 18 DIEGO LEGER MD 07/14/181918 interface
--- NOTE | ~2018-07-11 | PR ---
[place], [place] PROGRESS NOTE NAME: JOSETTE RYDER UNIT #: [id number] ROOM: 412 DOCTOR: DIEGO LEGER MD BIRTHDATE: [birth year] DOS: 07/13/2018 SUBJECTIVE: The patient complaining of significant lower extremity pains, which she says are from diabetic neuropathy and also significant muscle cramps in her lower extremities, but she is not complaining of any pains in her back. PHYSICAL EXAMINATION: VITAL SIGNS: Blood pressure 142/65, heart rate 86 beats per minute, breathing 20 times per minute, temperature of 98.4 degrees Fahrenheit. GENERAL APPEARANCE: The patient is alert and oriented x 3, in no visible distress. Obesity and generalized weakness. HEENT AND NECK: Exam within normal limits. CARDIOVASCULAR SYSTEM: Heart rate is regular in rate and rhythm. S1 and S2 normally audible. LUNGS: Clear to auscultation. ABDOMEN: Soft, nontender. No obvious organomegaly. Bowel sounds are present. EXTREMITIES: Without significant cyanosis or edema. IMPRESSION: 1. The patient had L2 vertebroplasty for acute compression fracture with improved pain. 2. Urinary tract infection with Enterococcus faecalis, to be treated with Augmentin and Rocephin is being stopped. 3. Significant complaints of pain in her lower extremities from diabetic polyneuropathy and muscle spasms. The patient takes 400 mg of Neurontin just at night. I am changing that to 300 mg 3 times a day for better pain relief. The patient was getting very sleepy and also mentally confused with Dilaudid, so I decreased the dose to half. 4. Chronic persistent moderate asthma, being treated with bronchodilators and incentive spirometry and antibiotic. Presently, the patient has acute exacerbation. 5. Type 2 diabetes mellitus. Blood sugars being monitored and treated and well controlled, ranging between 100-130 mostly. 6. Benign essential hypertension. Blood pressure is being monitored and controlled. 7. History of deep venous thrombosis. The patient anticoagulated with Xarelto. 8. Type 2 diabetes mellitus, being treated with glipizide. Blood sugars are being monitored and treated. 9. Mixed hyperlipidemia, treated with simvastatin. [place], [place] PROGRESS NOTE NAME: JOSETTE RYDER UNIT #: [id number] ROOM: 412 DOCTOR: DIEGO LEGER MD BIRTHDATE: [birth year] DIEGO LEGER MD CM:PNTRANS 1530 DIEGO LEGER MD 07/14/18 0335 interface
--- NOTE | ~2018-07-11 | DS ---
[place], [place] DISCHARGE SUMMARY NAME: JOSETTE RYDER [facility] #: [id number] UNIT #: [id number] ROOM: 412 DOCTOR: CECILIA REID MD BIRTHDATE: [birth year] DOS: 07/15/2018 DIAGNOSES: 1. Fall with compression fracture of L2, status post vertebroplasty. 2. Acute gouty arthropathy, right foot. 3. Enterococcus faecalis urine. 4. Hypotension. 5. Chronic kidney disease stage 3. 6. History of benign hypertension. 7. Type 2 diabetes mellitus. 8. Restless legs. 9. Generalized anxiety disorder. 10. History of DVT, on Xarelto, diverticulosis and history of colectomy, colostomy for the diverticulosis. MEDICATIONS ON DISCHARGE: Will be antihypertensives will be on hold, hydrochlorothiazide discontinued. We will restart the blood pressure medicines depending on how her pressures improved, Augmentin 875 twice a day, breathing treatments to DuoNeb q. 6, prednisone 5 mg twice a day, omeprazole 20 daily, simvastatin 20 daily, glipizide 10 daily, Requip 2 mg at bedtime, gabapentin 400 at bedtime, Xarelto 20 daily, vitamin D 50,000 units once a week, diclofenac for local application for arthritic pain, Lexapro 10 daily, Tylenol 650 q 6 p.r.n. for pain. PT/OT consult. ADA 2000 calorie diet. Blood sugars to be checked daily. HOSPITAL COURSE: This is an 83-year-old patient very well known to us, comes in after a fall at home. The patient had initially come into the Emergency Room. X-rays were negative. She came back because of continued pain. At this time, a CT of the lumbar and thoracic spine was performed, which showed possibility of a compression fracture. Discussed with Dr. Etienne who requested another MRI, which was done, which also mentioned this L2 fracture. The patient was scheduled for a vertebroplasty and was successfully done and her back pain is much improved. She also came in with some episode of asthmatic bronchitis for which she was started on breathing treatments, incentive spirometry and antibiotics. Urine cultures were sent. Urine culture grew Enterococcus faecalis, for which she was started on Augmentin. She was originally on Rocephin and antibiotics. She then developed acute gouty arthropathy for which the patient was placed on naproxen and Toradol. She does have chronic renal insufficiency and so may not be a candidate for multiple nonsteroidals. She also developed an episode of hypotension. IV fluids were given, a CBC does not show much drop in the H and H. We do not have the basic which is pending. If the basic metabolic panel does not show much drop in the GFR I plan to discharge her to [facility] where she is going to go for PT, OT. I will continue to monitor her blood pressures down. Restart the blood pressure medicines depending on her improvement. Please do a basic and a CBC on Sunday. [place], [place] DISCHARGE SUMMARY NAME: JOSETTE RYDER UNIT #: [id number] ROOM: 412 DOCTOR: CECILIA REID MD BIRTHDATE: [birth year] CECILIA REID MD CM:DISCHARG 2 1 CECILIA REID MD 07/15/18841 interface
--- NOTE | ~2018-07-11 | EKG ---
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
--- NOTE | ~2018-07-11 | PR ---
[place], [place] PROGRESS NOTE [id number] UNIT #: [id number] ROOM: 411 DOCTOR: CECILIA REID MD BIRTHDATE: [birth year] DOS: 07/12/2018 SUBJECTIVE: The patient has continued pain, but is controlled on the IV pain medications. She is awaiting the MRI results, so we can see whether she will be a candidate for vertebroplasty. OBJECTIVE: VITAL SIGNS: Graphic trend shows a pressure of 151/78, pulse of 80, respirations 20, temperature 98.4. LUNGS: Diminished breath sounds. HEART: Regular. ABDOMEN: Obese. EXTREMITIES: Without any edema. Colostomy working. ASSESSMENT AND PLAN: 1. Compression fracture of the L2. Awaiting MRI results and possible vertebroplasty today. 2. Adult failure to thrive, awaiting placement to [facility] 3. Urine culture showing Gram-positive cocci. We will continue Rocephin right now. We will change antibiotics once we have the final identification. 4. Type 2 diabetes mellitus. Blood sugar is controlled. CECILIA REID MD CM:PNTRANS 0829 0922 CECILIA REID MD 07/12/18 1548 interface
--- NOTE | ~2018-07-11 | WRIGHTHP ---
[place], [place] PATIENT HISTORY AND PHYSICAL EXAM NAME: JOSETTE RYDER [facility] #: [id number] UNIT #: [id number] ROOM: 411 DOCTOR: CECILIA REID MD BIRTHDATE: [birth year] DOS: 07/11/2018 HISTORY OF PRESENT ILLNESS: The patient is 83-year-old, very well known to us. The patient had a fall about 6 weeks ago, had some minimal back pain at that time and the symptoms eventually improved and she did not have any problems for some time. This happened on May 04. She was seen in the Emergency Room at that time, had a CT of the head and neck as well as x-rays of the neck and x-rays of the hand and x-ray of the lumbar spine and these did not show any abnormalities. The patient was just discharged home on a few pain medications. She came back to the hospital with severe back pain and flank pain July 06 and she felt that she had a pulled muscle in the back, pain was not resolving with conventional pain medications at home. In the Emergency Room, she had again routine x-rays done, which did not show any pathology. She was sent home on muscle relaxants and tramadol. She called back yesterday saying that the pain was much worse and that she needed some more muscle relaxants and pain medications, Zanaflex was called in, but the patient stated that it did not work, so she came back to the Emergency Room yesterday evening. At this time, she had a CT scan of the abdomen, which showed compression fracture of the vertebrae of L2 and has been admitted. She complains of a lot of pain. She also has some mild cough and unable to cough up mucus. She is unable to take a deep breath because of the pain. She denies having any chest pains, palpitations. PAST MEDICAL HISTORY: Significant for: 1. History of recent DVT, on Xarelto. 2. Benign hypertension. 3. Type 2 diabetes mellitus. 4. Generalized anxiety disorder. 5. Restless legs. 6. History of colectomy, colostomy. 7. Diverticulosis. MEDICATIONS: Xarelto 20 daily, omeprazole 20 daily, metoprolol 50 b.i.d., simvastatin 20 daily, losartan 50 daily, glipizide 5 b.i.d., Requip 2 mg at bedtime, gabapentin 400 daily, hydrochlorothiazide 12.5 daily. SOCIAL HISTORY: Nonsmoker. Does not use any alcohol. Lives at home with her son. PHYSICAL EXAMINATION: GENERAL: She is awake and alert and oriented, in moderate distress. VITAL SIGNS: Graphic trend shows blood pressure of 130/70, pulse of 86, respirations 16, temperature 97.8. LUNGS: Diminished breath sounds, scattered wheezes. HEART: Regular. ABDOMEN: Obese, with a colostomy in place. EXTREMITIES: Without any edema. No signs of DVT. BACK: Diffuse tenderness all across. She is unable to even move in bed. Again, CT of the abdomen is showing compression fracture of the L2. [place], [place] PATIENT HISTORY AND PHYSICAL EXAM NAME: [facility]YDER [id number] UNIT #: [id number] ROOM: [facility] DOCTOR: CECILIA REID MD BIRTHDATE: [birth year] ASSESSMENT AND PLAN: 1. Acute lumbago, possibly from compression fracture. Discussed with Dr. Etienne. MRI of the lumbar spine was ordered and the patient may require vertebroplasty. We will hold off on Xarelto for right now. 2. Pain control to be achieved with lidocaine, pain medications. 3. Benign hypertension, controlled. 4. Asthmatic bronchitis. The patient is ordered breathing treatments, incentive spirometry and antibiotics. 5. Type 2 diabetes mellitus. Blood sugars to be checked twice daily, coverage scale ordered. CECILIA REID MD CM:HISPHYS:PATIENT HISTORY AND PHYSICAL EXAMINATION 3 3 CECILIA REID MD 07/11/18843 interface
[~2018-07-11 02:48] MED LIST changes: +CYCLOBENZAPRINE5 M3 PO; +TRAMADOL HCL50 MG PO
[2018-07-11 03:25] LABS: BASO % 0.4 % (0.0-1.0); EOS # 0.2 10*3/uL (0.0-0.4); EOS % 3.1 % (1.0-4.0); HEMATOCRIT 32.5 % (37.0-47.0); LYMPH # 1.1 10*3/uL (1.3-4.4); LYMPH % 15.9 % (27.0-41.0); MEAN CELL VOLUME 82.5 fl (81.0-99.0); MEAN CORPUSCULAR HGB 25.4 pg (27.0-31.0); MEAN CORPUSCULAR HGB CONC 30.8 g/dl (33.0-37.0); MEAN PLATELET VOLUME 10.4 fl (9.6-12.3); MONO # 0.4 10*3/uL (0.1-1.0); NEUT % 74.2 % (47.0-73.0); PLATELET COUNT AUTOMATED 221 10*3/uL (130-400); RED BLOOD COUNT 3.94 10*6/uL (4.10-5.10); RED CELL DISTRI WIDTH 14.4 % (0-14.5); WHITE BLOOD COUNT 6.7 10*3/uL (4.8-10.8)
[2018-07-11 03:39] LABS: ALBUMIN 3.1 gm/dl (3.1-4.5); ALKALINE PHOSPHATASE 72 U/L (45-117); BUN 18 mg/dl (7-24); CHLORIDE 101 mmol/L (98-107); CREATININE 0.87 mg/dL (0.55-1.02); POTASSIUM 3.7 mmol/L (3.5-5.1); SGOT/AST 7 IU/L (3-35); SGPT/ALT 12 U/L (12-78); SODIUM 137 mmol/L (136-145); TOTAL PROTEIN 7.3 gm/dL (6.4-8.2)
[2018-07-11 03:46] LABS: BILIRUBIN NEGATIVE (NEGATIVE); BLOOD 3+ (NEGATIVE); CLARITY SL CLOUDY (CLEAR); COLOR YELLOW (YELLOW); GLUCOSE NEGATIVE (NEGATIVE); KETONE NEGATIVE (NEGATIVE); LEUKO ESTERASE 3+ (NEGATIVE); NITRITE NEGATIVE (NEGATIVE); UROBILINOGEN 0.2 E.U./dl (0.2-1.0)
[2018-07-11 04:11] LABS: BACTERIA TRACE; RBC 41-50 rbc/hpf (0-2); WBC 41-50 wbc/hpf (0-5)
[2018-07-11] MEDS ORDERED: ZANAFLEX2 M1 PO (05:58)
[2018-07-11] MEDS ORDERED: XARE20MG PO (06:00)
[2018-07-11] MEDS ORDERED: VITAMIN D50000 UNIT PO (06:02)
[2018-07-11] MEDS ORDERED: DICLOFENAC SOD100 G1 T (06:05)
[2018-07-11] MEDS ORDERED: LEXAPRO10 MG PO (06:06)
[2018-07-12] VITALS (16 sets, daily range): BP systolic 116–153; BP diastolic 45–96
[2018-07-13] VITALS: BP 143/84
[2018-07-13 08:00] VITALS: BP 146/78
[2018-07-13 11:53] VITALS: BP 142/65
[2018-07-13 16:00] VITALS: BP 139/64
[2018-07-13 20:00] VITALS: BP 140/68
[2018-07-14] VITALS (7 sets, daily range): BP systolic 88–134; BP diastolic 42–72
[2018-07-14 21:45] LABS: BASO % 0.4 % (0.0-1.0); EOS # 0.1 10*3/uL (0.0-0.4); HEMATOCRIT 29.6 % (37.0-47.0); LYMPH # 1.8 10*3/uL (1.3-4.4); LYMPH % 18.3 % (27.0-41.0); MEAN CELL VOLUME 84.3 fl (81.0-99.0); MEAN CORPUSCULAR HGB 25.6 pg (27.0-31.0); MEAN CORPUSCULAR HGB CONC 30.4 g/dl (33.0-37.0); MEAN PLATELET VOLUME 10.1 fl (9.6-12.3); MONO # 0.7 10*3/uL (0.1-1.0); MONO % 7.3 % (3.0-9.0); NEUT # 7.3 10*3/uL (2.3-7.9); NEUT % 72.7 % (47.0-73.0); PLATELET COUNT AUTOMATED 219 10*3/uL (130-400); RED BLOOD COUNT 3.51 10*6/uL (4.10-5.10); RED CELL DISTRI WIDTH 14.9 % (0-14.5); WHITE BLOOD COUNT 10.1 10*3/uL (4.8-10.8)
[2018-07-14 22:03] LABS: ALBUMIN 2.2 gm/dl (3.1-4.5); ALKALINE PHOSPHATASE 79 U/L (45-117); BUN 27 mg/dl (7-24); CHLORIDE 100 mmol/L (98-107); CREATININE 1.27 mg/dL (0.55-1.02); POTASSIUM 3.7 mmol/L (3.5-5.1); SGOT/AST 13 IU/L (3-35); SGPT/ALT 11 U/L (12-78); SODIUM 137 mmol/L (136-145); TOTAL PROTEIN 6.5 gm/dL (6.4-8.2); TROPONIN I < 0.015 ng/ml (<0.045)
[2018-07-15 04:00] VITALS: BP 116/52
[2018-07-15 07:54] LABS: BASO % 0.4 % (0.0-1.0); EOS # 0.2 10*3/uL (0.0-0.4); HEMATOCRIT 29.9 % (37.0-47.0); HEMOGLOBIN 9.2 g/dl (12.0-16.0); LYMPH # 1.4 10*3/uL (1.3-4.4); LYMPH % 15.1 % (27.0-41.0); MEAN CORPUSCULAR HGB 25.8 pg (27.0-31.0); MEAN CORPUSCULAR HGB CONC 30.8 g/dl (33.0-37.0); MEAN PLATELET VOLUME 10.6 fl (9.6-12.3); MONO # 0.6 10*3/uL (0.1-1.0); MONO % 6.8 % (3.0-9.0); NEUT # 6.8 10*3/uL (2.3-7.9); NEUT % 75.1 % (47.0-73.0); PLATELET COUNT AUTOMATED 196 10*3/uL (130-400); RED BLOOD COUNT 3.56 10*6/uL (4.10-5.10)
[2018-07-15] MEDS ORDERED: Ipratropium Brom3 ML NEB (08:12)
[2018-07-15] MEDS ORDERED: AUGMENTIN 875875 MG PO (08:12)
[2018-07-15] MEDS ORDERED: PREDNISONE5 MG PO (08:13)
[2018-07-15 08:17] LABS: CREATININE 1.32 mg/dL (0.55-1.02); POTASSIUM 3.7 mmol/L (3.5-5.1)
[2018-07-15 12:00] VITALS: BP 117/50
== END 2018-07-15 14:27 | disposition other institution (70) | DRG 516 ==
LOC: ED 02:48 → EDHOLD 04:39 → 4E 04:39
PROVIDERS: Internal Medicine Cardiovascular Disease; Student in an Organized Health Care Education/Training Program
PROC: 0QU03JZ Supplement Lumbar Vertebra with Synthetic Substitute, Percutaneous Approach (ICD-10-PCS; principal; 2018-07-12)
DX: S32.029A Unspecified fracture of second lumbar vertebra, initial encounter for closed fracture (principal); N39.0 Urinary tract infection, site not specified; I69.354 Hemiplegia and hemiparesis following cerebral infarction affecting left non-dominant side; N17.9 Acute kidney failure, unspecified; J45.909 Unspecified asthma, uncomplicated; I95.9 Hypotension, unspecified; I12.9 Hypertensive chronic kidney disease with stage 1 through stage 4 chronic kidney disease, or unspecified chronic kidney disease; E11.22 Type 2 diabetes mellitus with diabetic chronic kidney disease; N18.3 Chronic kidney disease, stage 3 (moderate); M10.9 Gout, unspecified; B95.2 Enterococcus as the cause of diseases classified elsewhere; E78.2 Mixed hyperlipidemia; E11.42 Type 2 diabetes mellitus with diabetic polyneuropathy; R62.7 Adult failure to thrive; E11.618 Type 2 diabetes mellitus with other diabetic arthropathy; G25.81 Restless legs syndrome; F41.1 Generalized anxiety disorder; W18.30XA Fall on same level, unspecified, initial encounter; Y93.89 Activity, other specified; Y92.89 Other specified places as the place of occurrence of the external cause; Z86.718 Personal history of other venous thrombosis and embolism; Y99.8 Other external cause status; Z90.49 Acquired absence of other specified parts of digestive tract; Z88.8 Allergy status to other drugs, medicaments and biological substances; Z87.440 Personal history of urinary (tract) infections; Z90.710 Acquired absence of both cervix and uterus

== ENCOUNTER → 2018-08-14 | Outpatient (CLI) | payer MEDICARE ==
[~2018-08-14] MED LIST changes: +AUGMENTIN 875875 MG PO; +DICLOFENAC SOD100 G1 T; +Ipratropium Brom3 ML NEB; +PREDNISONE5 MG PO; +VITAMIN D50000 UNIT PO; +XARE20MG PO; +ZANAFLEX2 M1 PO
== END | disposition home or self-care (01) ==
LOC: MRI 00:46
DX: M16.0 Bilateral primary osteoarthritis of hip (principal); S73.192A Other sprain of left hip, initial encounter; X58.XXXA Exposure to other specified factors, initial encounter; Y93.89 Activity, other specified; Y92.89 Other specified places as the place of occurrence of the external cause; Y99.8 Other external cause status; Z91.81 History of falling

== ENCOUNTER → 2018-08-28 | Outpatient (CLI) | payer MEDICARE | END | disposition home or self-care (01) | LOC: US 01:43 | DX: I82.401 Acute embolism and thrombosis of unspecified deep veins of right lower extremity (principal); I82.402 Acute embolism and thrombosis of unspecified deep veins of left lower extremity; R60.1 Generalized edema ==

== ENCOUNTER → 2018-10-19 | Outpatient (CLI) | payer MEDICARE | END | disposition home or self-care (01) | LOC: LAB 15:01 | DX: R82.71 Bacteriuria (principal) ==

== ENCOUNTER → 2019-05-08 | Outpatient (CLI) | payer MEDICARE ==
[2019-05-08 16:02] LABS: BILIRUBIN NEGATIVE (NEGATIVE); BLOOD 3+ (NEGATIVE); CLARITY CLOUDY (CLEAR); COLOR YELLOW (YELLOW); GLUCOSE NEGATIVE (NEGATIVE); KETONE NEGATIVE (NEGATIVE); LEUKO ESTERASE 2+ (NEGATIVE); NITRITE NEGATIVE (NEGATIVE); SPECIFIC GRAVITY 1.025 (1.005-1.030); UROBILINOGEN 0.2 E.U./dl (0.2-1.0)
[2019-05-08 16:10] LABS: RBC TNTC rbc/hpf (0-2); WBC TNTC wbc/hpf (0-5)
[2019-05-08 16:32] LABS: ALBUMIN 3.2 gm/dl (3.1-4.5); BILIRUBIN, DIRECT 0.1 mg/dL (0.0-0.2); TOTAL PROTEIN 7.4 gm/dL (6.4-8.2)
[2019-05-08 16:37] LABS: THYROID STIM HORMONE (HS) 2.42 uIU/ml (0.358-4.75)
[2019-05-08 17:06] LABS: BASO % 0.4 % (0.0-1.0); EOS # 0.2 10*3/uL (0.0-0.4); EOS % 2.4 % (1.0-4.0); HEMATOCRIT 34.2 % (37.0-47.0); HEMOGLOBIN 10.3 g/dl (12.0-16.0); LYMPH # 1.9 10*3/uL (1.3-4.4); LYMPH % 23.6 % (27.0-41.0); MEAN CELL VOLUME 84.7 fl (81.0-99.0); MEAN CORPUSCULAR HGB 25.5 pg (27.0-31.0); MEAN CORPUSCULAR HGB CONC 30.1 g/dl (33.0-37.0); MEAN PLATELET VOLUME 10.6 fl (9.6-12.3); MONO # 0.5 10*3/uL (0.1-1.0); MONO % 6.7 % (3.0-9.0); NEUT # 5.3 10*3/uL (2.3-7.9); NEUT % 66.6 % (47.0-73.0); PLATELET COUNT AUTOMATED 301 10*3/uL (130-400); RED BLOOD COUNT 4.04 10*6/uL (4.10-5.10); RED CELL DISTRI WIDTH 15.4 % (0-14.5)
[2019-05-12 15:04] LABS: METHYLMALONIC ACID 353 nmol/L (0-378)
== END | disposition home or self-care (01) ==
LOC: US 14:30 → LAB 14:37
PROVIDERS: Internal Medicine
DX: I82.512 Chronic embolism and thrombosis of left femoral vein (principal); M48.061 Spinal stenosis, lumbar region without neurogenic claudication; N39.0 Urinary tract infection, site not specified; E11.9 Type 2 diabetes mellitus without complications

== ENCOUNTER → 2019-06-27 | Outpatient (CLI) | payer MEDICARE | END | disposition home or self-care (01) | LOC: MRI 00:27 | DX: M47.812 Spondylosis without myelopathy or radiculopathy, cervical region (principal); M50.222 Other cervical disc displacement at C5-C6 level; I10 Essential (primary) hypertension; E11.9 Type 2 diabetes mellitus without complications ==

== ENCOUNTER → 2019-07-16 | Day surgery (SDC) | payer MEDICARE ==
[~2019-07-16] VITALS: Ht 157.4 cm; Wt 89.8 kg
--- NOTE | ~2019-07-16 | O ---
[place], [place] OPERATIVE NOTE NAME: JOSETTE RYDER UNIT #: [id number] ROOM: DOCTOR: LAMBERT GRUBBS MD BIRTHDATE: [birth year] DOS: 07/16/2019 PREOPERATIVE DIAGNOSIS: Cataract, right eye. POSTOPERATIVE DIAGNOSIS: Cataract, right eye. OPERATION: Extracapsular cataract extraction by phacoemulsification with posterior chamber intraocular lens implantation, right eye. ANESTHESIA: Monitored standby. OPERATIVE FINDINGS AND PROCEDURE: 2% Xylocaine topical anesthetic gel was applied to the eye in the preop area. The patient was taken to the operating room and prepped and draped in the standard fashion for sterile intraocular surgery. A time out procedure was performed verifying correct patient, correct site and corrects lens with Cece Grubbs M.D. The operating microscope was swung into position and the lid speculum was inserted. Using a Deisi paracentesis blade, a paracentesis was made through clear cornea. Viscoelastic was used to fill the anterior chamber. Using a metal keratome a 2.4 mm self-sealing clear corneal cataract incision was made temporally at the limbus. Using a pre-bent 25 gauge cystotome needle, a standard continuous curvilinear capsulorrhexis was performed. The anterior capsule was removed with forceps. The lens nucleus was hydrodissected and phacoemulsified in the posterior chamber. Cortical material was removed with the irrigation aspiration hand piece and the posterior capsule was then polished with a curet under irrigation. The posterior chamber and capsular bag were filled with viscoelastic. A posterior chamber intraocular lens manufactured by: [employer] [id number], and 22.5 diopters in strength were then inserted into the posterior chamber and within the capsular bag using the lens cartridge and injector system. Viscoelastic was removed using the irrigation aspiration handpiece. The anterior chamber was filled with balanced salt solution through the paracentesis. Both the paracentesis site and cataract incisions were hydrated with BSS and verified to be water-tight and self-sealing. Cefuroxime 1 mg/0.1 mL was injected into the anterior chamber through the paracentesis site. The incision checked to be water-tight using a Weck-Kristyn sponge. The integrity of the cataract wound and ocular tension were checked. Lid speculum and drapes were removed. The patient was transferred from the operating room to the recovery room in satisfactory condition. [place], [place] OPERATIVE NOTE NAME: JOSETTE RYDER UNIT #: [id number] ROOM: DOCTOR: LAMBERT GRUBBS MD BIRTHDATE: [birth year] LAMBERT GRUBBS MD CM:OPRECORD:OPERATIVE NOTE 4 1 LAMBERT GRUBBS MD 07/16/1923 interface
[2019-07-16 06:30] VITALS: BP 123/74
[2019-07-16 08:11] VITALS: BP 123/60
[2019-07-16 08:25] VITALS: BP 123/60
[2019-07-16 08:40] VITALS: BP 131/65
== END | disposition home or self-care (01) ==
LOC: SDC 07-09 08:45
DX: H25.811 Combined forms of age-related cataract, right eye (principal); E78.00 Pure hypercholesterolemia, unspecified; E11.9 Type 2 diabetes mellitus without complications; K21.9 Gastro-esophageal reflux disease without esophagitis; Z98.890 Other specified postprocedural states; Z90.710 Acquired absence of both cervix and uterus; Z79.899 Other long term (current) drug therapy; Z88.8 Allergy status to other drugs, medicaments and biological substances; Z86.73 Personal history of transient ischemic attack (TIA), and cerebral infarction without residual deficits

== ENCOUNTER → 2019-08-20 | Day surgery (SDC) | payer MEDICARE ==
[~2019-08-20] VITALS: Ht 157.4 cm; Wt 89.8 kg
[2019-08-20 09:15] VITALS: BP 167/71
[2019-08-20 10:07] VITALS: BP 116/62
[2019-08-20 10:22] VITALS: BP 128/60
[2019-08-20 10:37] VITALS: BP 116/56
== END | disposition home or self-care (01) ==
LOC: SDC 08-18 10:15
DX: H25.812 Combined forms of age-related cataract, left eye (principal); E11.9 Type 2 diabetes mellitus without complications; K21.9 Gastro-esophageal reflux disease without esophagitis; E78.00 Pure hypercholesterolemia, unspecified; E78.5 Hyperlipidemia, unspecified; Z98.890 Other specified postprocedural states; Z79.899 Other long term (current) drug therapy

== ENCOUNTER → 2019-10-13 | Outpatient (CLI) | payer MEDICARE | END | disposition home or self-care (01) | LOC: US 13:21 | DX: I82.431 Acute embolism and thrombosis of right popliteal vein (principal); I82.412 Acute embolism and thrombosis of left femoral vein ==

== ENCOUNTER → 2020-01-14 | Outpatient (CLI) | payer MEDICARE ==
[2020-01-14 13:47] LABS: BASO % 0.6 % (0.0-1.0); EOS # 0.2 10*3/uL (0.0-0.4); EOS % 2.1 % (1.0-4.0); HEMATOCRIT 29.8 % (37.0-47.0); LYMPH % 28.6 % (27.0-41.0); MEAN CELL VOLUME 76.6 fl (81.0-99.0); MEAN CORPUSCULAR HGB 21.6 pg (27.0-31.0); MEAN CORPUSCULAR HGB CONC 28.2 g/dl (33.0-37.0); MEAN PLATELET VOLUME 10.8 fl (9.6-12.3); MONO # 0.4 10*3/uL (0.1-1.0); MONO % 5.2 % (3.0-9.0); NEUT # 4.5 10*3/uL (2.3-7.9); NEUT % 63.1 % (47.0-73.0); PLATELET COUNT AUTOMATED 217 10*3/uL (130-400); RED BLOOD COUNT 3.89 10*6/uL (4.10-5.10); RED CELL DISTRI WIDTH 16.6 % (0-14.5); WHITE BLOOD COUNT 7.1 10*3/uL (4.8-10.8)
[2020-01-14 14:20] LABS: BUN 18 mg/dl (7-24); CHLORIDE 104 mmol/L (98-107); CREATININE 1.05 mg/dL (0.55-1.02); POTASSIUM 4.7 mmol/L (3.5-5.1); SODIUM 138 mmol/L (136-145)
== END | disposition home or self-care (01) ==
LOC: LAB 00:08 → US 13:00
PROVIDERS: Internal Medicine
DX: I82.431 Acute embolism and thrombosis of right popliteal vein (principal); I12.9 Hypertensive chronic kidney disease with stage 1 through stage 4 chronic kidney disease, or unspecified chronic kidney disease; N18.3 Chronic kidney disease, stage 3 (moderate)

== ENCOUNTER → 2020-04-27 | Outpatient (CLI) | payer MEDICARE ==
[2020-04-27 17:26] LABS: BASO % 0.5 % (0.0-1.0); EOS # 0.2 10*3/uL (0.0-0.4); EOS % 2.8 % (1.0-4.0); HEMATOCRIT 30.2 % (37.0-47.0); LYMPH # 2.1 10*3/uL (1.3-4.4); LYMPH % 27.9 % (27.0-41.0); MEAN CELL VOLUME 73.1 fl (81.0-99.0); MEAN CORPUSCULAR HGB 19.9 pg (27.0-31.0); MEAN CORPUSCULAR HGB CONC 27.2 g/dl (33.0-37.0); MONO # 0.5 10*3/uL (0.1-1.0); MONO % 6.2 % (3.0-9.0); NEUT # 4.6 10*3/uL (2.3-7.9); NEUT % 62.3 % (47.0-73.0); PLATELET COUNT AUTOMATED 305 10*3/uL (130-400); RED BLOOD COUNT 4.13 10*6/uL (4.10-5.10); RED CELL DISTRI WIDTH 16.9 % (0-14.5); WHITE BLOOD COUNT 7.4 10*3/uL (4.8-10.8)
[2020-04-27 19:24] LABS: ALBUMIN 3.6 gm/dl (3.1-4.5); CREATININE 1.08 mg/dL (0.55-1.02); POTASSIUM 4.5 mmol/L (3.5-5.1); TOTAL PROTEIN 8.1 gm/dL (6.4-8.2)
[2020-04-28 14:28] LABS: BILIRUBIN NEGATIVE; BLOOD 1+ (NEGATIVE); CLARITY TURBID (CLEAR); COLOR YELLOW (YELLOW); GLUCOSE NEGATIVE; KETONE NEGATIVE; LEUKO ESTERASE 3+ (NEGATIVE); NITRITE NEGATIVE (NEGATIVE); UROBILINOGEN 0.2 E.U./dl (0.0-1.0)
[2020-04-28 14:29] LABS: WBC TNTC wbc/hpf (0-5)
== END | disposition home or self-care (01) ==
LOC: LAB 00:26
PROVIDERS: ATTEND Urology
DX: R31.9 Hematuria, unspecified (principal)

== ENCOUNTER 2020-05-03 12:11 | Emergency (ER) | payer OTHER, MEDICARE ==
[2020-05-03 12:15] VITALS: BP 130/46
== END 2020-05-03 15:33 | disposition home or self-care (01) ==
LOC: ED 12:11
DX: S20.20XA Contusion of thorax, unspecified, initial encounter (principal); Z88.8 Allergy status to other drugs, medicaments and biological substances; Z79.899 Other long term (current) drug therapy; V49.9XXA Car occupant (driver) (passenger) injured in unspecified traffic accident, initial encounter; Y93.89 Activity, other specified; Y92.89 Other specified places as the place of occurrence of the external cause; Y99.8 Other external cause status

== ENCOUNTER → 2020-05-28 | Outpatient (CLI) | payer MEDICARE | END | disposition home or self-care (01) | LOC: MRI 05-26 13:00 | PROVIDERS: ATTEND Internal Medicine | DX: R51.9 Headache, unspecified (principal) ==

== ENCOUNTER → 2020-06-01 | Outpatient (CLI) | payer MEDICARE | END | disposition home or self-care (01) | LOC: US 00:58 | PROVIDERS: ATTEND Internal Medicine | DX: M79.604 Pain in right leg (principal); R60.0 Localized edema ==

== ENCOUNTER → 2020-08-20 | Outpatient (CLI) | payer MEDICARE ==
[2020-08-20 14:56] LABS: BASO % 0.5 % (0.0-1.0); EOS # 0.1 10*3/uL (0.0-0.4); EOS % 1.3 % (1.0-4.0); HEMATOCRIT 34.8 % (37.0-47.0); LYMPH # 2.1 10*3/uL (1.3-4.4); LYMPH % 27.1 % (27.0-41.0); MEAN CELL VOLUME 75.7 fl (81.0-99.0); MEAN CORPUSCULAR HGB 21.7 pg (27.0-31.0); MEAN CORPUSCULAR HGB CONC 28.7 g/dl (33.0-37.0); MEAN PLATELET VOLUME 10.5 fl (9.6-12.3); MONO # 0.3 10*3/uL (0.1-1.0); MONO % 4.4 % (3.0-9.0); NEUT # 5.1 10*3/uL (2.3-7.9); NEUT % 66.3 % (47.0-73.0); PLATELET COUNT AUTOMATED 251 10*3/uL (130-400); RED CELL DISTRI WIDTH 22.2 % (0-14.5); WHITE BLOOD COUNT 7.7 10*3/uL (4.8-10.8)
[2020-08-20 14:58] LABS: BILIRUBIN Negative (Negative); BLOOD 2+ (Negative); CLARITY Cloudy (Clear); COLOR Yellow (Yellow); GLUCOSE Negative (Negative); KETONE Negative (Negative); LEUKO ESTERASE 3+ (Negative); NITRITE Negative (Negative); SPECIFIC GRAVITY 1.015 (1.001-1.030); UROBILINOGEN 0.2 E.U./dl (0.0-1.0)
[2020-08-20 15:31] LABS: ALBUMIN 3.5 gm/dl (3.1-4.5); POTASSIUM 4.4 mmol/L (3.5-5.1)
[2020-08-20 15:35] LABS: BACTERIA 2+; WBC TNTC wbc/hpf (0-5)
[2020-08-20 15:42] LABS: CREATININE 1.07 mg/dL (0.55-1.02); THYROXINE (T4) TOTAL 9.5 ug/dl (4.8-13.9); TOTAL PROTEIN 8.2 gm/dL (6.4-8.2)
== END | disposition home or self-care (01) ==
LOC: LAB 13:59 → CT 14:00
PROVIDERS: ATTEND Urology
DX: N20.0 Calculus of kidney (principal); R31.9 Hematuria, unspecified

== ENCOUNTER → 2020-08-25 | Outpatient (CLI) | payer MEDICARE ==
[~2020-08-25] MED LIST changes: +'XANAX0.5 MG PO; +FERROUS SULFAT324 M2 PO; +HYDROXYZINE HCL25 MG PO; +LINEZOLID600 MG PO
[2020-09-06 17:06] LABS: BUSHITE 0.35 ratio (0.00-3.00); CALCIUM OXALATE 2.61 ratio (0.00-6.00); CALCIUM, URINE 37.6 mg/24 hr (100.0-300.0); CALCIUM, URINE 4.7 mg/dL (Not Estab.); CITRIC ACID (CITRATE) 81 mg/24 hr (320-1240); MAGNESIUM, URINE 4.1 mg/dL (Not Estab.); MONOSODIUM URATE 4.03 ratio (0.00-4.00); OSMOLALITY, URINE 649 (300-900); SODIUM, URINE 107 (23-207); SODIUM, URINE 134 mmol/L (Not Estab.); STRUVITE 0.01 ratio (0.00-1.00); URIC ACID 3.77 ratio (0.00-1.20); pH 24 HR URINE 5.5 (.)
== END | disposition home or self-care (01) ==
LOC: LAB 13:28
PROVIDERS: ATTEND Urology
DX: N20.0 Calculus of kidney (principal); R31.9 Hematuria, unspecified

== ENCOUNTER 2020-09-14 14:36 | Inpatient (IN) | payer MEDICARE ==
[~2020-09-14] VITALS: Ht 154.9 cm; Wt 85.5 kg
[~2020-09-14 14:36] MED LIST changes: -'XANAX0.5 MG PO; -FERROUS SULFAT324 M2 PO; -HYDROXYZINE HCL25 MG PO; -LINEZOLID600 MG PO
[2020-09-14 14:45] VITALS: BP 98/44
[2020-09-14 15:37] LABS: BASO % 0.6 % (0.0-1.0); EOS # 0.1 10*3/uL (0.0-0.4); EOS % 0.9 % (1.0-4.0); HEMATOCRIT 28.3 % (37.0-47.0); LYMPH # 0.9 10*3/uL (1.3-4.4); LYMPH % 16.8 % (27.0-41.0); MEAN CELL VOLUME 76.3 fl (81.0-99.0); MEAN CORPUSCULAR HGB 22.1 pg (27.0-31.0); MEAN PLATELET VOLUME 9.7 fl (9.6-12.3); MONO # 0.4 10*3/uL (0.1-1.0); MONO % 7.8 % (3.0-9.0); NEUT # 3.9 10*3/uL (2.3-7.9); NEUT % 73.3 % (47.0-73.0); PLATELET COUNT AUTOMATED 209 10*3/uL (130-400); RED BLOOD COUNT 3.71 10*6/uL (4.10-5.10); WHITE BLOOD COUNT 5.4 10*3/uL (4.8-10.8)
[2020-09-14 15:54] LABS: CREATININE 1.66 mg/dL (0.55-1.02); POTASSIUM 4.9 mmol/L (3.5-5.1); TOTAL PROTEIN 6.8 gm/dL (6.4-8.2)
[2020-09-14 16:36] LABS: BILIRUBIN Negative (Negative); BLOOD 2+ (Negative); CLARITY Turbid (Clear); COLOR Yellow (Yellow); GLUCOSE Negative (Negative); KETONE Negative (Negative); LEUKO ESTERASE 3+ (Negative); NITRITE Negative (Negative); PH 5.5 (4.5-8.0); UROBILINOGEN 0.2 E.U./dl (0.0-1.0)
[2020-09-14 16:46] LABS: BACTERIA 2+; EPITHELIAL CELLS TNTC; RBC TNTC rbc/hpf (0-2); WBC TNTC wbc/hpf (0-5)
[2020-09-14 16:54] VITALS: BP 110/50
[2020-09-14 20:00] VITALS: BP 89/54
[2020-09-14] MEDS ORDERED: 'XANAX0.5 MG PO (22:32)
[2020-09-15] VITALS: BP 126/51
[2020-09-15 06:28] LABS: BASO % 0.4 % (0.0-1.0); EOS # 0.2 10*3/uL (0.0-0.4); EOS % 4.4 % (1.0-4.0); HEMATOCRIT 27.3 % (37.0-47.0); LYMPH # 1.9 10*3/uL (1.3-4.4); LYMPH % 36.4 % (27.0-41.0); MEAN CELL VOLUME 76.7 fl (81.0-99.0); MEAN CORPUSCULAR HGB 22.5 pg (27.0-31.0); MEAN CORPUSCULAR HGB CONC 29.3 g/dl (33.0-37.0); MEAN PLATELET VOLUME 10.5 fl (9.6-12.3); MONO # 0.5 10*3/uL (0.1-1.0); MONO % 8.5 % (3.0-9.0); NEUT # 2.6 10*3/uL (2.3-7.9); NEUT % 49.9 % (47.0-73.0); PLATELET COUNT AUTOMATED 213 10*3/uL (130-400); RED BLOOD COUNT 3.56 10*6/uL (4.10-5.10); RED CELL DISTRI WIDTH 18.9 % (0-14.5); WHITE BLOOD COUNT 5.3 10*3/uL (4.8-10.8)
[2020-09-15 06:39] LABS: POTASSIUM 4.1 mmol/L (3.5-5.1)
[2020-09-15 06:47] LABS: CREATININE 1.34 mg/dL (0.55-1.02)
[2020-09-15 08:00] VITALS: BP 150/66
[2020-09-15 12:00] VITALS: BP 114/59
[2020-09-15 16:00] VITALS: BP 115/52
[2020-09-15 20:07] VITALS: BP 145/54
[2020-09-16] VITALS: BP 137/70
[2020-09-16 08:00] VITALS: BP 140/50
[2020-09-16 12:00] VITALS: BP 128/57
[2020-09-16 16:00] VITALS: BP 131/56
[2020-09-16 20:00] VITALS: BP 134/61
[2020-09-17] VITALS: BP 134/58
[2020-09-17] MEDS ORDERED: LINEZOLID600 MG PO (07:08)
[2020-09-17] MEDS ORDERED: HYDROXYZINE HCL25 MG PO (07:10)
[2020-09-17] MEDS ORDERED: FERROUS SULFAT324 M2 PO (07:13)
[2020-09-17 08:00] VITALS: BP 151/71
== END 2020-09-17 13:44 | DRG 689 ==
LOC: ED 14:36 → 5E 16:18 → EDHOLD 16:18 → 5E 17:04
PROVIDERS: Registered Nurse; ADMIT Internal Medicine; ATTEND Internal Medicine
DX: N39.0 Urinary tract infection, site not specified (principal); N17.0 Acute kidney failure with tubular necrosis; I12.0 Hypertensive chronic kidney disease with stage 5 chronic kidney disease or end stage renal disease; F32.0 Major depressive disorder, single episode, mild; B95.2 Enterococcus as the cause of diseases classified elsewhere; W19.XXXA Unspecified fall, initial encounter; R62.7 Adult failure to thrive; Z20.822 Contact with and (suspected) exposure to COVID-19; F41.9 Anxiety disorder, unspecified; E11.22 Type 2 diabetes mellitus with diabetic chronic kidney disease; N18.32 Chronic kidney disease, stage 3b; Z86.718 Personal history of other venous thrombosis and embolism; I69.344 Monoplegia of lower limb following cerebral infarction affecting left non-dominant side; Y93.89 Activity, other specified; Y92.89 Other specified places as the place of occurrence of the external cause; Y99.8 Other external cause status; Z90.49 Acquired absence of other specified parts of digestive tract; Z90.710 Acquired absence of both cervix and uterus; Z93.3 Colostomy status; Z68.35 Body mass index [BMI] 35.0-35.9, adult

== ENCOUNTER → 2020-10-29 | Outpatient (CLI) | payer MEDICARE ==
[~2020-10-29] MED LIST changes: +'XANAX0.5 MG PO; +FERROUS SULFAT324 M2 PO; +HYDROXYZINE HCL25 MG PO; +LINEZOLID600 MG PO
== END | disposition home or self-care (01) ==
LOC: RAD 09:54
PROVIDERS: ATTEND Urology
DX: N20.0 Calculus of kidney (principal); Z96.0 Presence of urogenital implants

== ENCOUNTER → 2020-11-03 | Outpatient (CLI) | payer MEDICARE | END | disposition home or self-care (01) | LOC: CT 01:30 | PROVIDERS: ATTEND Urology | DX: N20.0 Calculus of kidney (principal); D35.02 Benign neoplasm of left adrenal gland; K43.9 Ventral hernia without obstruction or gangrene; I70.90 Unspecified atherosclerosis; Z90.49 Acquired absence of other specified parts of digestive tract; Z96.0 Presence of urogenital implants ==

== ENCOUNTER → 2020-12-01 | Outpatient (CLI) | payer MEDICARE ==
[2020-12-01 15:41] LABS: BASO # 0.1 10*3/uL (0.0-0.1); BASO % 0.6 % (0.0-1.0); EOS # 0.2 10*3/uL (0.0-0.4); EOS % 2.2 % (1.0-4.0); HEMATOCRIT 35.6 % (37.0-47.0); LYMPH % 30.1 % (27.0-41.0); MEAN CELL VOLUME 80.5 fl (81.0-99.0); MEAN CORPUSCULAR HGB 23.8 pg (27.0-31.0); MEAN CORPUSCULAR HGB CONC 29.5 g/dl (33.0-37.0); MEAN PLATELET VOLUME 10.4 fl (9.6-12.3); MONO # 0.6 10*3/uL (0.1-1.0); MONO % 6.3 % (3.0-9.0); NEUT # 6.1 10*3/uL (2.3-7.9); NEUT % 60.4 % (47.0-73.0); PLATELET COUNT AUTOMATED 327 10*3/uL (130-400); RED BLOOD COUNT 4.42 10*6/uL (4.10-5.10); RED CELL DISTRI WIDTH 16.9 % (0-14.5); WHITE BLOOD COUNT 10.1 10*3/uL (4.8-10.8)
[2020-12-01 15:44] LABS: BILIRUBIN Negative (Negative); BLOOD 2+ (Negative); CLARITY Turbid (Clear); COLOR Yellow (Yellow); GLUCOSE Trace (Negative); KETONE Negative (Negative); LEUKO ESTERASE 3+ (Negative); NITRITE Negative (Negative)
[2020-12-01 15:57] LABS: WBC TNTC wbc/hpf (0-5)
[2020-12-01 16:12] LABS: ALBUMIN 3.5 gm/dl (3.1-4.5); CREATININE 1.34 mg/dL (0.55-1.02); POTASSIUM 4.8 mmol/L (3.5-5.1); TOTAL PROTEIN 8.3 gm/dL (6.4-8.2)
== END | disposition home or self-care (01) ==
LOC: US 00:23 → LAB 00:23 → US 14:00
PROVIDERS: ATTEND Urology
DX: N20.0 Calculus of kidney (principal)

== ENCOUNTER → 2020-12-03 | Outpatient (CLI) | payer MEDICARE | END | disposition home or self-care (01) | LOC: LAB 01:05 | PROVIDERS: ATTEND Urology | DX: N20.0 Calculus of kidney (principal) ==

== ENCOUNTER → 2020-12-27 | Outpatient (CLI) | payer MEDICARE | END | disposition home or self-care (01) | LOC: US 02:01 | PROVIDERS: ATTEND Urology | DX: E04.2 Nontoxic multinodular goiter (principal); E21.3 Hyperparathyroidism, unspecified ==

== ENCOUNTER 2021-11-22 10:35 | Inpatient (IN) | payer MEDICARE ==
[~2021-11-22] VITALS: Ht 154.9 cm; Wt 87.3 kg
[2021-11-22 10:44] VITALS: BP 158/64
[2021-11-22 11:07] LABS: BILIRUBIN Negative (Negative); BLOOD 2+ (Negative); CLARITY Cloudy (Clear); COLOR Yellow (Yellow); GLUCOSE Negative (Negative); KETONE Negative (Negative); LEUKO ESTERASE 1+ (Negative); NITRITE Negative (Negative); SPECIFIC GRAVITY 1.015 (1.001-1.030); UROBILINOGEN 0.2 E.U./dl (0.0-1.0)
[2021-11-22 11:19] LABS: BACTERIA 2+; EPITHELIAL CELLS 21-30; WBC 16-20 wbc/hpf (0-5)
[2021-11-22 11:19] LABS: HEMATOCRIT 30.7 % (37.0-47.0); MEAN CELL VOLUME 72.6 fl (81.0-99.0); MEAN CORPUSCULAR HGB 21.3 pg (27.0-31.0); MEAN CORPUSCULAR HGB CONC 29.3 g/dl (33.0-37.0); MEAN PLATELET VOLUME 10.6 fl (9.6-12.3); PLATELET COUNT AUTOMATED 227 10*3/uL (130-400); RED BLOOD COUNT 4.23 10*6/uL (4.10-5.10); RED CELL DISTRI WIDTH 17.4 % (0-14.5); WHITE BLOOD COUNT 9.8 10*3/uL (4.8-10.8)
[2021-11-22 11:20] LABS: MANUAL DIFF REFLEX YES
[2021-11-22 11:30] LABS: ACT PARTIAL THROMBO TIME 25.3 SECONDS (20.0-32.1); INTERNATIONAL NORM RATIO 1.1 (2.0-3.5)
[2021-11-22 11:38] LABS: CREATININE 1.07 mg/dL (0.55-1.02); POTASSIUM 4.2 mmol/L (3.5-5.1)
[2021-11-22 11:50] LABS: TOTAL CELLS COUNTED 100 #CELLS
[2021-11-22 11:51] LABS: MICROCYTOSIS SLIGHT; OVALOCYTES FEW; PLATELET SUFFICIENCY NORMAL (NORMAL); POLYCHROMASIA SLIGHT
[2021-11-22 12:07] VITALS: BP 137/60
[2021-11-22 13:08] VITALS: BP 137/63
[2021-11-22 16:00] VITALS: BP 125/51
[2021-11-22 20:00] VITALS: BP 145/75
[2021-11-23] VITALS: BP 111/64
[2021-11-23] MEDS ORDERED: METOPROLOL TART50 M1 PO (00:59)
[2021-11-23] MEDS ORDERED: LOSARTAN POTASS50 M1 PO (00:59)
[2021-11-23] MEDS ORDERED: OMEPRAZOLE40 MG PO (00:59)
[2021-11-23] MEDS ORDERED: XARELTO15 M1 PO (01:00)
[2021-11-23] MEDS ORDERED: BUSPAR5 MG PO (01:00)
[2021-11-23] MEDS ORDERED: GABAPENTIN800 MG PO (01:01)
[2021-11-23 06:36] LABS: BUN 15 mg/dl (7-24); CHLORIDE 108 mmol/L (98-107); CREATININE 0.89 mg/dL (0.55-1.02); POTASSIUM 3.9 mmol/L (3.5-5.1); SODIUM 138 mmol/L (136-145)
[2021-11-23 06:56] LABS: BASO % 0.3 % (0.0-1.0); EOS % 0.3 % (1.0-4.0); HEMATOCRIT 27.6 % (37.0-47.0); LYMPH # 1.1 10*3/uL (1.3-4.4); LYMPH % 11.3 % (27.0-41.0); MEAN CELL VOLUME 72.3 fl (81.0-99.0); MEAN CORPUSCULAR HGB 21.5 pg (27.0-31.0); MEAN CORPUSCULAR HGB CONC 29.7 g/dl (33.0-37.0); MEAN PLATELET VOLUME 10.8 fl (9.6-12.3); MONO # 0.4 10*3/uL (0.1-1.0); MONO % 4.4 % (3.0-9.0); NEUT # 7.9 10*3/uL (2.3-7.9); NEUT % 83.2 % (47.0-73.0); PLATELET COUNT AUTOMATED 203 10*3/uL (130-400); RED BLOOD COUNT 3.82 10*6/uL (4.10-5.10); RED CELL DISTRI WIDTH 17.6 % (0-14.5); WHITE BLOOD COUNT 9.6 10*3/uL (4.8-10.8)
[2021-11-23 08:00] VITALS: BP 128/62
[2021-11-23 12:00] VITALS: BP 123/50
[2021-11-23 16:00] VITALS: BP 126/52
[2021-11-23 20:00] VITALS: BP 144/71
[2021-11-24] VITALS: BP 146/74
[2021-11-24 06:01] LABS: BASO % 0.4 % (0.0-1.0); EOS # 0.2 10*3/uL (0.0-0.4); EOS % 2.9 % (1.0-4.0); HEMATOCRIT 26.7 % (37.0-47.0); LYMPH # 1.3 10*3/uL (1.3-4.4); LYMPH % 16.4 % (27.0-41.0); MEAN CELL VOLUME 72.8 fl (81.0-99.0); MEAN CORPUSCULAR HGB 21.5 pg (27.0-31.0); MEAN CORPUSCULAR HGB CONC 29.6 g/dl (33.0-37.0); MEAN PLATELET VOLUME 10.6 fl (9.6-12.3); MONO # 0.4 10*3/uL (0.1-1.0); MONO % 4.5 % (3.0-9.0); NEUT # 6.2 10*3/uL (2.3-7.9); NEUT % 75.4 % (47.0-73.0); PLATELET COUNT AUTOMATED 215 10*3/uL (130-400); RED BLOOD COUNT 3.67 10*6/uL (4.10-5.10); RED CELL DISTRI WIDTH 17.8 % (0-14.5); WHITE BLOOD COUNT 8.2 10*3/uL (4.8-10.8)
[2021-11-24 06:30] LABS: BUN 14 mg/dl (7-24); CHLORIDE 110 mmol/L (98-107); CREATININE 0.86 mg/dL (0.55-1.02); POTASSIUM 4.1 mmol/L (3.5-5.1); SODIUM 140 mmol/L (136-145)
[2021-11-24 08:00] VITALS: BP 137/68
[2021-11-24 12:00] VITALS: BP 153/53
[2021-11-24 16:00] VITALS: BP 156/60
[2021-11-24 20:00] VITALS: BP 152/74
[2021-11-25] VITALS: BP 142/61
[2021-11-25 06:06] LABS: BASO % 0.3 % (0.0-1.0); EOS # 0.2 10*3/uL (0.0-0.4); EOS % 2.8 % (1.0-4.0); HEMATOCRIT 26.5 % (37.0-47.0); LYMPH # 1.6 10*3/uL (1.3-4.4); LYMPH % 22.7 % (27.0-41.0); MEAN CELL VOLUME 73.2 fl (81.0-99.0); MEAN CORPUSCULAR HGB CONC 28.7 g/dl (33.0-37.0); MEAN PLATELET VOLUME 10.9 fl (9.6-12.3); MONO # 0.4 10*3/uL (0.1-1.0); MONO % 6.1 % (3.0-9.0); NEUT # 4.9 10*3/uL (2.3-7.9); NEUT % 67.8 % (47.0-73.0); PLATELET COUNT AUTOMATED 214 10*3/uL (130-400); RED BLOOD COUNT 3.62 10*6/uL (4.10-5.10); RED CELL DISTRI WIDTH 17.9 % (0-14.5); WHITE BLOOD COUNT 7.2 10*3/uL (4.8-10.8)
[2021-11-25 06:18] LABS: BUN 19 mg/dl (7-24); CHLORIDE 108 mmol/L (98-107); CREATININE 0.94 mg/dL (0.55-1.02); POTASSIUM 4.2 mmol/L (3.5-5.1); SODIUM 137 mmol/L (136-145)
[2021-11-25 08:00] VITALS: BP 158/72
[2021-11-25 12:00] VITALS: BP 150/66
[2021-11-25 16:00] VITALS: BP 156/63
[2021-11-25 20:00] VITALS: BP 181/60
[2021-11-26] VITALS: BP 171/67
[2021-11-26 06:21] LABS: BASO % 0.5 % (0.0-1.0); EOS # 0.2 10*3/uL (0.0-0.4); EOS % 3.6 % (1.0-4.0); HEMATOCRIT 26.6 % (37.0-47.0); LYMPH # 1.9 10*3/uL (1.3-4.4); LYMPH % 29.1 % (27.0-41.0); MEAN CELL VOLUME 72.9 fl (81.0-99.0); MEAN CORPUSCULAR HGB 21.1 pg (27.0-31.0); MEAN CORPUSCULAR HGB CONC 28.9 g/dl (33.0-37.0); MEAN PLATELET VOLUME 10.8 fl (9.6-12.3); MONO # 0.4 10*3/uL (0.1-1.0); MONO % 6.5 % (3.0-9.0); NEUT # 3.8 10*3/uL (2.3-7.9); NEUT % 59.1 % (47.0-73.0); PLATELET COUNT AUTOMATED 230 10*3/uL (130-400); RED BLOOD COUNT 3.65 10*6/uL (4.10-5.10); RED CELL DISTRI WIDTH 17.9 % (0-14.5); WHITE BLOOD COUNT 6.4 10*3/uL (4.8-10.8)
[2021-11-26 06:26] LABS: BUN 17 mg/dl (7-24); CHLORIDE 110 mmol/L (98-107); CREATININE 0.82 mg/dL (0.55-1.02); POTASSIUM 4.1 mmol/L (3.5-5.1); SODIUM 139 mmol/L (136-145)
[2021-11-26] MEDS ORDERED: CEFUROXIME AXE250 MG PO (06:43)
[2021-11-26] MEDS ORDERED: FERROUS GLUCON324 MG PO (06:43)
[2021-11-26 08:00] VITALS: BP 184/79
== END 2021-11-26 10:44 | disposition home or self-care (01) | DRG 872 ==
LOC: ED 10:35 → EDHOLD 13:38 → 5E 13:38
PROVIDERS: Emergency Medicine; ADMIT Internal Medicine; ATTEND Internal Medicine
DX: A41.9 Sepsis, unspecified organism (principal); E44.1 Mild protein-calorie malnutrition; F33.1 Major depressive disorder, recurrent, moderate; D50.9 Iron deficiency anemia, unspecified; B34.9 Viral infection, unspecified; R65.20 Severe sepsis without septic shock; K57.90 Diverticulosis of intestine, part unspecified, without perforation or abscess without bleeding; E11.9 Type 2 diabetes mellitus without complications; K64.9 Unspecified hemorrhoids; I10 Essential (primary) hypertension; K21.00 Gastro-esophageal reflux disease with esophagitis, without bleeding; Z79.01 Long term (current) use of anticoagulants; Z90.49 Acquired absence of other specified parts of digestive tract; Z90.710 Acquired absence of both cervix and uterus; Z88.8 Allergy status to other drugs, medicaments and biological substances; Z79.899 Other long term (current) drug therapy; Z68.36 Body mass index [BMI] 36.0-36.9, adult; Z93.3 Colostomy status

== ENCOUNTER → 2022-02-17 | Outpatient (CLI) | payer MEDICARE ==
[~2022-02-17] MED LIST changes: +BUSPAR5 MG PO; +CEFUROXIME AXE250 MG PO; +CEPHALEXIN500 M1 PO; +CIPRO500 MG PO; +DOXYCYCLINE HY100 M3 PO; +FERROUS GLUCON324 MG PO; +GABAPENTIN800 MG PO; +HYDROCODONE-AC1 EAC2 PO; +KETOCONAZOLE 1120 ML T; +LOSARTAN POTASS50 M1 PO; +METOPROLOL TART50 M1 PO; +OMEPRAZOLE40 MG PO; +PREDNISONE10 MG PO; +TOBRAMYCIN5 ML OPH; +TRAD5TAB1 PO; +XARELTO10 MG PO; +XARELTO15 M1 PO; +ZYLOPRIM100 MG PO
== END | disposition home or self-care (01) ==
LOC: ORTHO 01:47
PROVIDERS: ATTEND Orthopaedic Surgery
DX: M84.361D Stress fracture, right tibia, subsequent encounter for fracture with routine healing (principal)

== ENCOUNTER → 2022-03-17 | Outpatient (CLI) | payer MEDICARE | END | disposition home or self-care (01) | LOC: ORTHO 00:37 | PROVIDERS: ATTEND Orthopaedic Surgery | DX: M17.11 Unilateral primary osteoarthritis, right knee (principal); M25.861 Other specified joint disorders, right knee ==

== ENCOUNTER → 2022-04-28 | Outpatient (CLI) | payer MEDICARE | END | disposition home or self-care (01) | LOC: ORTHO 00:44 | PROVIDERS: ATTEND Orthopaedic Surgery | DX: M25.761 Osteophyte, right knee (principal); M25.461 Effusion, right knee; M85.861 Other specified disorders of bone density and structure, right lower leg; M84.361D Stress fracture, right tibia, subsequent encounter for fracture with routine healing ==

== ENCOUNTER → 2022-05-12 | Outpatient (CLI) | payer MEDICARE | END | disposition home or self-care (01) | LOC: RAD 00:55 | PROVIDERS: ATTEND Orthopaedic Surgery | DX: M81.0 Age-related osteoporosis without current pathological fracture (principal); M84.361D Stress fracture, right tibia, subsequent encounter for fracture with routine healing ==

== ENCOUNTER → 2022-08-02 | Outpatient (CLI) | payer MEDICARE ==
[~2022-08-02] MED LIST changes: +DEXAMETHASONE6 MG PO; +LEVOFLOXACIN500 MG PO; +LEVOFLOXACIN750 M2 PO
[2022-08-02 12:07] LABS: BASO % 0.5 % (0.0-1.0); EOS # 0.2 10*3/uL (0.0-0.4); EOS % 2.9 % (1.0-4.0); HEMATOCRIT 38.6 % (37.0-47.0); LYMPH # 2.7 10*3/uL (1.3-4.4); LYMPH % 33.1 % (27.0-41.0); MEAN CELL VOLUME 88.9 fl (81.0-99.0); MEAN CORPUSCULAR HGB 28.8 pg (27.0-31.0); MEAN CORPUSCULAR HGB CONC 32.4 g/dl (33.0-37.0); MONO # 0.6 10*3/uL (0.1-1.0); MONO % 6.8 % (3.0-9.0); NEUT # 4.6 10*3/uL (2.3-7.9); NEUT % 56.2 % (47.0-73.0); PLATELET COUNT AUTOMATED 272 10*3/uL (130-400); RED BLOOD COUNT 4.34 10*6/uL (4.10-5.10); RED CELL DISTRI WIDTH 13.7 % (0-14.5); WHITE BLOOD COUNT 8.2 10*3/uL (4.8-10.8)
[2022-08-02 12:28] LABS: ALKALINE PHOSPHATASE 67 U/L (46-116); BUN 17 mg/dl (9-23); CHLORIDE 102 mmol/L (98-107); CHOLESTEROL 131 mg/dL (<200); CREATININE 0.94 mg/dL (0.55-1.02); FREE T4 1.18 ng/dl (0.89-1.76); LDL CHOLESTEROL 51 mg/dL (9-159); POTASSIUM 4.5 mmol/L (3.4-5.1); SGPT/ALT 10 U/L (10-49); SODIUM 136 mmol/L (136-145); THYROID STIM HORMONE (HS) 2.818 uIU/ml (0.550-4.780); TOTAL PROTEIN 7.2 gm/dL (6.0-8.0); TRIGLYCERIDES 161 mg/dl (<150)
[2022-08-02 13:08] LABS: VITAMIN D, 25-HYDROXY 41.2 ng/mL (30-100)
== END | disposition home or self-care (01) ==
LOC: LAB 11:32
PROVIDERS: ATTEND Internal Medicine
DX: I10 Essential (primary) hypertension (principal); D50.8 Other iron deficiency anemias; E11.65 Type 2 diabetes mellitus with hyperglycemia; E55.9 Vitamin D deficiency, unspecified; Z13.89 Encounter for screening for other disorder; Z13.0 Encounter for screening for diseases of the blood and blood-forming organs and certain disorders involving the immune mechanism

== ENCOUNTER 2022-09-27 12:47 | Emergency (ER) | payer MEDICARE ==
[~2022-09-27] VITALS: Ht 154.9 cm; Wt 83.9 kg
[~2022-09-27 12:47] MED LIST changes: +AMOXICILLIN875 MG PO; +CIPROFLOXACIN HC5 ML OPH; +FLORASTOR250 MG PO
[2022-09-27 12:54] VITALS: BP 186/77
== END 2022-09-27 14:52 | disposition home or self-care (01) ==
LOC: ED 12:47
DX: S09.90XA Unspecified injury of head, initial encounter (principal); K21.9 Gastro-esophageal reflux disease without esophagitis; Z86.73 Personal history of transient ischemic attack (TIA), and cerebral infarction without residual deficits; I82.409 Acute embolism and thrombosis of unspecified deep veins of unspecified lower extremity; E11.40 Type 2 diabetes mellitus with diabetic neuropathy, unspecified; Z86.718 Personal history of other venous thrombosis and embolism; Z88.8 Allergy status to other drugs, medicaments and biological substances; Z90.710 Acquired absence of both cervix and uterus; Z90.49 Acquired absence of other specified parts of digestive tract; Z98.890 Other specified postprocedural states; W19.XXXA Unspecified fall, initial encounter; Y93.89 Activity, other specified; Y92.89 Other specified places as the place of occurrence of the external cause; Y99.8 Other external cause status

== ENCOUNTER 2022-11-26 14:08 | Emergency (ER) | payer MEDICARE ==
[~2022-11-26] VITALS: Ht 154.9 cm; Wt 83.0 kg
[~2022-11-26 14:08] MED LIST changes: +AMOX-CLAV 875-1 EACH PO
[2022-11-26 14:18] VITALS: BP 154/70
[2022-11-26 15:10] LABS: BILIRUBIN Negative (Negative); BLOOD Negative (Negative); CLARITY Clear (Clear); COLOR Yellow (Yellow); GLUCOSE Negative (Negative); KETONE Negative (Negative); LEUKO ESTERASE 2+ (Negative); NITRITE Negative (Negative); PH 5.5 (4.5-8.0); UROBILINOGEN 0.2 E.U./dl (0.0-1.0)
[2022-11-26 15:19] LABS: BASO % 0.4 % (0.0-1.0); EOS # 0.2 10*3/uL (0.0-0.4); EOS % 2.1 % (1.0-4.0); HEMATOCRIT 38.1 % (37.0-47.0); LYMPH % 25.3 % (27.0-41.0); MEAN CORPUSCULAR HGB 27.8 pg (27.0-31.0); MEAN CORPUSCULAR HGB CONC 32.3 g/dl (33.0-37.0); MEAN PLATELET VOLUME 10.2 fl (9.6-12.3); MONO # 0.5 10*3/uL (0.1-1.0); MONO % 6.7 % (3.0-9.0); NEUT # 5.1 10*3/uL (2.3-7.9); NEUT % 65.2 % (47.0-73.0); PLATELET COUNT AUTOMATED 255 10*3/uL (130-400); RED BLOOD COUNT 4.43 10*6/uL (4.10-5.10); RED CELL DISTRI WIDTH 15.1 % (0-14.5); WHITE BLOOD COUNT 7.8 10*3/uL (4.8-10.8)
[2022-11-26 15:27] LABS: RBC 0-2 rbc/hpf (0-2); WBC 21-30 wbc/hpf (0-5)
[2022-11-26 15:32] LABS: INTERNATIONAL NORM RATIO 1.1 (2.0-3.5)
[2022-11-26 15:39] LABS: ALKALINE PHOSPHATASE 74 U/L (46-116); BUN 14 mg/dl (9-23); CHLORIDE 104 mmol/L (98-107); POTASSIUM 4.3 mmol/L (3.4-5.1); SGPT/ALT 8 U/L (10-49); THYROID STIM HORMONE (HS) 3.388 uIU/ml (0.550-4.780); TOTAL PROTEIN 7.3 gm/dL (6.0-8.0)
== END 2022-11-26 16:55 | disposition home or self-care (01) ==
LOC: ED 14:08
PROVIDERS: Emergency Medicine
DX: N39.0 Urinary tract infection, site not specified (principal); K21.9 Gastro-esophageal reflux disease without esophagitis; E11.21 Type 2 diabetes mellitus with diabetic nephropathy; Z88.8 Allergy status to other drugs, medicaments and biological substances; Z90.710 Acquired absence of both cervix and uterus; Z90.49 Acquired absence of other specified parts of digestive tract; Z98.890 Other specified postprocedural states

== ENCOUNTER → 2022-12-06 | Outpatient (CLI) | payer MEDICARE | END | disposition home or self-care (01) | LOC: CT 01:21 | PROVIDERS: ATTEND Internal Medicine | DX: N20.0 Calculus of kidney (principal); K76.0 Fatty (change of) liver, not elsewhere classified; I25.10 Atherosclerotic heart disease of native coronary artery without angina pectoris; E27.9 Disorder of adrenal gland, unspecified; K57.32 Diverticulitis of large intestine without perforation or abscess without bleeding; E27.49 Other adrenocortical insufficiency ==